=== PATIENT | male | born 1955 | race Hispanic/Latino ===

== ENCOUNTER 2022-08-26 15:02 | Emergency (ER) | payer OTHER ==
[~2022-08-26] VITALS: Ht 180.3 cm; Wt 82.1 kg
[2022-08-26 15:05] VITALS: BP 132/67
[2022-08-26 15:41] LABS: BASOPHILS % (AUTO) 0.5 % (0.0-5.0); EOSINOPHILS % (AUTO) 0.6 % (0.0-8.0); HEMATOCRIT 45.5 % (42-54); LYMPHOCYTES % (AUTO) 22.8 % (21.0-51.0); MEAN CORPUSCULAR HEMOGLOBIN 29.5 pg (27.0-33.0); MEAN CORPUSCULAR HGB CONC 34.5 g/dL (32.0-36.0); MEAN CORPUSCULAR VOLUME 85.4 fL (79-99); MONOCYTES % (AUTO) 6.5 % (3.0-13.0); NEUTROPHILS % (AUTO) 69.1 % (40.0-77.0); PLATELET COUNT (AUTO) 190 K/uL (130-400); RED BLOOD CELL COUNT(AUTO) 5.33 MIL/uL (4.50-6.20); RED CELL DISTRIBUTION WIDTH 13.4 % (11.0-15.5); WHITE BLOOD COUNT (AUTO) 8.5 K/uL (4.8-10.8)
[2022-08-26 15:57] LABS: INR 0.99 (0.85-1.15); PROTHROMBIN TIME 10.8 SEC (9.6-11.6)
[2022-08-26 16:00] LABS: CREATININE 0.7 mg/dL (0.5-1.5); POTASSIUM 3.4 mmol/L (3.5-5.1)
[2022-08-26 16:05] LABS: ALBUMIN 3.9 g/dL (3.5-5.0); TOTAL PROTEIN, SERUM 7.8 g/dL (6.0-8.3)
== END 2022-08-26 17:45 | disposition home or self-care (01) ==
LOC: EDH 15:02
DX: R60.0 Localized edema (principal)
CPT/HCPCS: 36415; 80053; 85025; 85610; 93971

== ENCOUNTER 2023-01-24 15:19 | Emergency (ER) | payer OTHER, MEDICARE ==
[~2023-01-24] VITALS: Ht 180.3 cm; Wt 83.9 kg
[2023-01-24 15:45] LABS: BASOPHILS % (AUTO) 0.1 % (0.0-5.0); HEMATOCRIT 40.5 % (42-54); LYMPHOCYTES % (AUTO) 2.8 % (21.0-51.0); MEAN CORPUSCULAR HEMOGLOBIN 29.4 pg (27.0-33.0); MEAN CORPUSCULAR HGB CONC 34.1 g/dL (32.0-36.0); MEAN CORPUSCULAR VOLUME 86.4 fL (79-99); MONOCYTES % (AUTO) 6.6 % (3.0-13.0); NEUTROPHILS % (AUTO) 89.9 % (40.0-77.0); PLATELET COUNT (AUTO) 150 K/uL (130-400); RED BLOOD CELL COUNT(AUTO) 4.69 MIL/uL (4.50-6.20); RED CELL DISTRIBUTION WIDTH 13.3 % (11.0-15.5); WHITE BLOOD COUNT (AUTO) 10.1 K/uL (4.8-10.8)
[2023-01-24 16:17] LABS: ALANINE AMINOTRANSFERASE 33 U/L (12-78); ALBUMIN 3.3 g/dL (3.5-5.0); ASPARTATE AMINOTRANSFERASE 14 U/L (10-37); CARBON DIOXIDE 24 mmol/L (21-32); CHLORIDE 106 mmol/L (101-111); GLOMERULAR FILTR. RATE CALC 82 mL/min (>90); GLUCOSE,RANDOM 140 mg/dL (70-105); SODIUM SERUM 137 mmol/L (136-145); TOTAL PROTEIN, SERUM 6.6 g/dL (6.0-8.3); UREA NITROGEN, BLOOD 18 mg/dL (7-18)
[2023-01-24 16:18] LABS: LIPASE < 50 U/L (114-286)
[2023-01-24 16:20] LABS: POTASSIUM 2.9 mmol/L (3.5-5.1)
[2023-01-24] MEDS ORDERED: ACETAMINOPHEN 500 MG TABLET PO ONE (16:30)
[2023-01-24 17:26] LABS: APPEARANCE,URINE CLEAR (CLEAR); BILIRUBIN,URINE NEGATIVE (NEGATIVE); COLOR,URINE YELLOW (YELLOW); GLUCOSE, URINE (UA) NEGATIVE (NEGATIVE); KETONES,URINE NEGATIVE (NEGATIVE); LEUKOCYTE ESTERASE ,URINE NEGATIVE Leu/uL (NEGATIVE); NITRATE,URINE NEGATIVE (NEGATIVE); OCCULT BLOOD,URINE NEGATIVE (NEGATIVE); PH,URINE 5.5 (5.0-8.0); PROTEIN,URINE 10 mg/dL (NEGATIVE); UROBILINOGEN,URINE 0.2 mg/dL (0.2-1.0)
[2023-01-24 17:29] LABS: WBC,URINE 0-1 /HPF (0-1)
[2023-01-24] MEDS ORDERED: POTASSIUM BICARB/CIT AC 25 MEQ TABLET.EFF PO ONE ×2 (17:30→18:00)
[2023-01-24] MEDS ORDERED: 0.9%NACL 1000ML 1,000 ML IV ONE (18:00)
[2023-01-24 20:24] VITALS: BP 105/60
== END 2023-01-24 20:33 | disposition home or self-care (01) ==
LOC: EDH 15:19
DX: K52.9 Noninfective gastroenteritis and colitis, unspecified (principal); E86.0 Dehydration; E87.6 Hypokalemia; F41.9 Anxiety disorder, unspecified; H40.9 Unspecified glaucoma; Z98.890 Other specified postprocedural states
CPT/HCPCS: 99285; 87635; 84484; 80053; 83690; 85025; 87040 ×2; 87804 ×2; 83605; 81001; 36415; 93005; C9803

== ENCOUNTER 2025-03-02 10:22 | Inpatient (IN) | payer OTHER, MEDICARE ==
[~2025-03-02] VITALS: Ht 180.3 cm; Wt 53.3 kg
[~2025-03-02 10:22] MED LIST: FINA5TAB41 PO; LEVO-70 PO; PANT40TA54 PO; TAMS-55 PO
--- NOTE | 2025-03-02 11:09 | EKG ---
[facility] Test Date: 2025-03-02 Test Time: 10:51:12 Pat Name: JACKIE ROBBINS Department: EDH Room: ED Gender: M Display Associate: [id number] : 1955 Requested By: TRAE JONAS Order Number: [id number] Reading MD: Dale Barlow Measurements Intervals [place] Rate: 69 P: 86 CT: 130 QRS: 79 QRSD: 78 T: 61 QT: 409 QTc: 437 Interpretive Statements Sinus rhythm Compared to ECG 09/07/2024 18:08:32 No significant changes Electronically Signed On 03-02-2025 21:33:25 CDT by Dale Barlow Please click the below link to view image of tracing.
[2025-03-02 11:13] LABS: BASOPHILS # (AUTO) 0.02 K/uL (0.00-0.20); BASOPHILS % (AUTO) 0.4 % (0.0-5.0); EOSINOPHILS # (AUTO) 0.01 K/uL (0.00-0.70); EOSINOPHILS % (AUTO) 0.2 % (0.0-8.0); HEMATOCRIT 42.6 % (42-54); IMMATURE GRANULOCYTE ABSOLUTE 0.01 K/uL (0-1); LYMPHOCYTES # (AUTO) 1.6 K/uL (1.0-4.8); LYMPHOCYTES % (AUTO) 33.5 % (21.0-51.0); MEAN CORPUSCULAR HEMOGLOBIN 30.9 pg (27.0-33.0); MEAN CORPUSCULAR HGB CONC 34.5 g/dL (32.0-36.0); MEAN CORPUSCULAR VOLUME 89.7 fL (79-99); MONOCYTES # (AUTO) 0.4 K/uL (0.1-1.0); MONOCYTES % (AUTO) 7.6 % (3.0-13.0); NEUTROPHILS # (AUTO) 2.7 K/uL (1.8-7.7); NEUTROPHILS % (AUTO) 58.1 % (40.0-77.0); PLATELET COUNT (AUTO) 142 K/uL (130-400); RED BLOOD CELL COUNT(AUTO) 4.75 MIL/uL (4.50-6.20); RED CELL DISTRIBUTION WIDTH 13.4 % (11.0-15.5); WHITE BLOOD COUNT (AUTO) 4.6 K/uL (4.8-10.8)
--- NOTE | 2025-03-02 11:14 | ERN ---
ED Note History of Present Illness Stated Complaint: DIFFICULTY SWALLOWING Chief Complaint: Other Problems Time Seen by MD: 10:29 Time Seen by Midlevel: 10:33 Dictation: 69-year-old male [facility] difficulty [facility] for two weeks in lost weight in the last couple of months. Denies any fever but states patient has a been able to have a bowel movement for two weeks. Allergies: Uncoded Allergies: LEVOFLOX (Allergy, Intermediate, ABDOMINAL CRAMPING, 03/02/25) Home Meds Active Scripts Levofloxacin (Levofloxacin) 500 Mg Tablet, 1 TAB PO DAILY for 7 Days, #7 TAB 0 Refills Prov:BRENDA ARAUJO DRIVING INSTRUCTOR 09/09/24 Reported Medications Finasteride (Finasteride) 5 Mg Tablet, 5 MG PO BID, TAB 09/08/24 Tamsulosin HCl (Flomax) 0.4 Mg Cap.er.24h, 1 CAP PO DAILY for 30 Days, #30 CAP 0 Refills 09/08/24 Pantoprazole Sodium (Pantoprazole Sodium) 40 Mg Tablet.dr, 1 TAB PO DAILY for 30 Days, #30 TAB 0 Refills 09/08/24 Past Medical History Past Medical History: Anxiety, Arthritis, Constipation, GERD, High Cholesterol Surgical History: Other Surgical History Other: TURP Social History: Negative, Lives with family Review of System Dictation Constitutional: Negative for fever,chills, positive for weight loss Eyes: Negative for injury, pain,redness, and discharge ENT: Negative for injury,pain or swelling, states difficulty swallowing Cardiovascular: Negative for chest pain, palpitations, and edema Respiratory: Negative for shortness of breath, cough, and wheezing, Abdomen/GI: Negative for abdominal pain, nausea, vomiting, diarrhea, and constipation Back: Negative for injury and pain : Negative for injury, bleeding and discharge MS/Extremity: Negative for injury and deformity Skin: Negative for rash, and discoloration Neuro: Negative for headache, weakness, numbness, tingling, and seizure Psych: Negative for suicide ideation, homicidal ideation, and hallucinations Review of Systems: was completed Initial Vital Sign VS Vital Signs Date Time Temp Pulse Resp B/P (MAP) Pulse Ox O2 Delivery O2 Flow Rate FiO2 03/02/25 10:25 72 16 123/89 99 Room Air 0 03/02/25 11:03 98.8 21 Physical Exam Dictation General: awake, alert, patient looks cachectic Head/Face: Normocephalic, atraumatic Eyes: PERRL, EOMI, vision at baseline ENT: oral cavity clear, TMs clear, no signs of infection Neck: Trachea midline, supple, no nuchal rigidity Cardiovascular: RRR, normal S1/S2, No MRGs, no JVD Respiratory: CTAB, no respiratory distress, No rales or wheezes Abdomen: Soft, non-tender, non-distended, normal bowel sounds, no guarding or rebound. Skin: Warm, dry, normal turgor, no rash MS/Extremity: Pulses equal, no cyanosis, neurovascular intact, FROM Neuro: COAx4, GCS 15, strength 5/5, CN 2-12 intact, normal cerebellar exam, normal gait, Psych: Normal behavior, mood, and affect normal Results (Laboratory/Radiology) Laboratory/Radiology Laboratory Tests Test 03/02/25 11:00 White Blood Count 4.6 K/uL (4.8-10.8) L Red Blood Count 4.75 MIL/uL (4.50-6.20) Hemoglobin 14.7 g/dL (14.0-18.0) Hematocrit 42.6 % (42-54) Mean Corpuscular Volume 89.7 fL (79-99) Mean Corpuscular Hemoglobin 30.9 pg (27.0-33.0) Mean Corpuscular Hemoglobin Concent 34.5 g/dL (32.0-36.0) Red Cell Distribution Width 13.4 % (11.0-15.5) Platelet Count 142 K/uL (130-400) Mean Platelet Volume 12.2 fL (7.5-10.5) H Immature Granulocyte % (Auto) 0.2 % (0-1) Neutrophils (%) (Auto) 58.1 % (40.0-77.0) Lymphocytes (%) (Auto) 33.5 % (21.0-51.0) Monocytes (%) (Auto) 7.6 % (3.0-13.0) Eosinophils (%) (Auto) 0.2 % (0.0-8.0) Basophils (%) (Auto) 0.4 % (0.0-5.0) Neutrophils # (Auto) 2.7 K/uL (1.8-7.7) Lymphocytes # (Auto) 1.6 K/uL (1.0-4.8) Monocytes # (Auto) 0.4 K/uL (0.1-1.0) Eosinophils # (Auto) 0.01 K/uL (0.00-0.70) Basophils # (Auto) 0.02 K/uL (0.00-0.20) Absolute Immature Granulocyte (auto 0.01 K/uL (0-1) Nucleated Red Blood Cells 0.0 % (0.0-0.19) Sodium Level 145 mmol/L (136-145) Potassium Level 3.8 mmol/L (3.5-5.1) Chloride Level 106 mmol/L (101-111) Carbon Dioxide Level 32 mmol/L (21-32) Blood Urea Nitrogen 26 mg/dL (7-18) H Creatinine 0.9 mg/dL (0.5-1.3) Glomerular Filtration Rate Calc 92 mL/min (>90) Random Glucose 99 mg/dL (70-105) Total Calcium 9.0 mg/dL (8.5-10.1) Total Bilirubin 1.0 mg/dL (0.2-1.0) Direct Bilirubin 0.3 mg/dL (0.0-0.3) Aspartate Amino Transf (AST/SGOT) 26 U/L (10-37) Alanine Aminotransferase (ALT/SGPT) 67 U/L (12-78) Alkaline Phosphatase 58 U/L (50-136) Troponin I High Sensitivity 11 ng/L (4-75) Total Protein 6.9 g/dL (6.0-8.3) Albumin 4.0 g/dL (3.5-5.0) Lipase 32 U/L (16-77) Labs Reviewed?: Yes EKG Comment: EKGs did not 1051. Sinus rhythm at a rate of 69. No STEMI interpreted by ER MD ED Course ED Course Orders Procedure Category Date Status Time Cbc With Differential LAB 03/02/25 Complete 10:40 Basic Metabolic Panel LAB 03/02/25 Complete 10:40 Troponin I High LAB 03/02/25 Complete Sensitivity 10:40 12 Lead Ekg Tracing- EKG 03/02/25 Complete Technical 10:40 Lipase LAB 03/02/25 Complete 10:40 Hepatic Function Panel LAB 03/02/25 Complete 10:40 Ct Abdomen/Pelvis CT 03/02/25 Resulted W/Contrast 10:40 Modified Barium RAD 03/02/25 Resulted Swallow W Cine 10:47 Dermabond (Dermabond) PHA 03/02/25 Complete 11:24 Iohexol (Omnipaque) PHA 03/02/25 Complete 12:13 Admit Orders ADM 03/02/25 Transmitted 16:16 Edm Admit Bridge Order ADM 03/02/25 Transmitted 16:17 Current Medications Medications (Trade) Dose Ordered Sig/Valeria Route PRN Reason Start Time Stop Time Status Last Admin Dose Admin Iohexol (Omnipaque) 75 ml STK-MED ONCE IV 03/02/25 12:13 03/02/25 12:14 DC Octyl Cyanoacrylate (Dermabond) 1 each STK-MED ONCE TP 03/02/25 11:24 03/02/25 11:24 DC Vital Signs Date Time Temp Pulse Resp B/P (MAP) Pulse Ox O2 Delivery O2 Flow Rate FiO2 03/02/25 13:01 98.8 60 14 155/72 99 Room Air* 0 21 03/02/25 11:03 98.8 67 16 117/79 100 Room Air* 0 21 03/02/25 10:25 72 16 123/89 99 Room Air 0 Medical Decision Making MDM MDM: 69-year-old male coming in for a the [place] for difficulty swallowing for two weeks in lost weight in the last couple of months. Denies any fever but states patient has a been able to have a bowel movement for two weeks. Blood work unremarkable. CT scan of the abdomen and pelvis shows just enlarged prostate. Swallow study shows no aspiration or penetration, recommend GI consult for further evaluation of upper GI series spoke to DRIVING INSTRUCTOR for hospitalist. Okay to admi t. Differential diagnosis: Failure to thrive, dehydration, electrolyte abnormality, LEI, Ca Rationale: Tests considered and ordered secondary to shared decision making include: labs, ECG and radiology Previous outside records reviewed: Old ER visits. Risk of complication and/or morbidity or mortality of patient management: None Medications-Per medication reconciliation Need for hospitalization: Patient does meet criteria for hospitalization. Need for emergency major/minor surgery: No There are no social concerns with this patient. Prescription drug management Prescriptions will include symptomatic care Patient's prior external medical records from other ER visits were reviewed by me as indicated. Prior testing and results from previous visits were reviewed. Prior tests were taken into account with medical decision making and resource utilization, independent historian/historians were used to obtain complete medical history. I independently interpreted the test that were performed, results were reviewed by me and considered findings on radiology if ordered. Medical management and examination interpretation discussions were had by me with other qualified healthcare professionals as indicated for the patient's care. DX & DISP Disposition: Inpatient Decision to Admit Date: March 02, 2025 Decision to Admit Time: 16:15 Departure Impression: Primary Impression: Dysphagia Condition: Stable Referrals: SHARYN MILLER MD (PCP) I have reviewed the case, and I agree with, Diagnosis and Plan I PERFORMED A SUBSTANTIVE PORTION OF THE VISIT. I HAVE REVIEWED AND PERSONALLY MADE AND APPROVE THE MANAGEMENT PLAN THAT IS DOCUMENTED IN THE NOTE BY MYSELF OR THE AP P. I ACKNOWLEDGE FULL RESPONSIBILITY FOR THE PATIENT'S MANAGEMENT PLAN. TRAE JONAS NP March 02, 2025 11:14
[2025-03-02 11:30] LABS: CREATININE 0.9 mg/dL (0.5-1.3); POTASSIUM 3.8 mmol/L (3.5-5.1)
[2025-03-02 11:34] LABS: BILIRUBIN,DIRECT 0.3 mg/dL (0.0-0.3); TOTAL PROTEIN, SERUM 6.9 g/dL (6.0-8.3)
[2025-03-02] MEDS ORDERED: IOHEXOL-350 75 ML VIAL IV ONE (12:13)
[2025-03-02] MEDS: OCTYL 2-CYANOACRYLATE 1 EACH TP ONE (12:30)
--- NOTE | 2025-03-02 13:43 | HMCIMG ---
Exam Type: CT ABDOMEN/PELVIS W/CONTRAST Clinical Information: n/v, constipation Comparison: None Contrast: 100 cc's Isovue 370 IV, no complications or adverse reactions CT Dose Index (CTDI): 31.60 mGy Dose Length Product (DLP): 1740.80 total mGy-cm Findings: Trace ascites. Anasarca. Cachexia. No evidence of nephro or ureterolithiasis is found. No hydronephrosis or ureteral dilatation is seen. The lung bases are clear. The stomach is unremarkable. It shows no wall thickening. No gross ulceration is seen. It is not overly distended. There are no surrounding inflammatory changes. No wall lesions are identified to suggest cancer. The spleen is unremarkable. It is not enlarged. The pancreas shows normal anatomy. It is not fatty replaced. It shows no lesions. The pancreatic duct is not dilated. The gallbladder is unremarkable. It shows no cholelithiasis. The gallbladder wall is normal in thickness. There is no pericholecystic fluid. The is no acute or chronic inflammation noted. The adrenal glands are unremarkable. There is no enlargement. No lesions are noted. The liver is unremarkable. It shows no focal masses. The appendix is unremarkable. It shows no evidence of inflammation. No appendicolith is seen. The small bowel is unremarkable. There is no evidence of dilatation to suggest obstruction. No evidence of adynamic ileus is seen. There is no small bowel wall thickening to suggest enteritis. The colon is unremarkable. Distended urinary bladder is seen. Enlarged prostate. The other pelvic structures are unremarkable. The bony and vascular structures are unremarkable for the patient's age. IMPRESSION: Trace ascites. Anasarca. Cachexia. Distended urinary bladder. Enlarged prostate. This study was performed using dose reduction techniques to include automated exposure control and/or adjustment of the mA and/or kV according to patient size.
--- NOTE | 2025-03-02 15:00 | NUR ---
MBSS COMPLETED. No aspirations/no penetrations. Recommend pureed solids, thin liquids, and meds crushed with pureed solids once cleared by GI MD. Compensatory strategies: 1.sit upright during oral intake 2. small bites/sips 3. slow oral intake DIAGNOSTIC FINDINGS: Pt very anxious during exam mildly affecting swallowing in oral phase due to decreased swallow initiation. Pt started with trials of pureed solids (taking just the tip of the spoon X2) with no aspirations or penetrations. Pt felt comfortable and started taking full spoon trials of pudding thick textures with no penetrations or aspirations. Pt continue with moderately thick, mildly thick liquids via tsp and thin liquids via cup sip with no penetrations or aspirations. Pt presented with mild residue above UES due to mild reflux observed. Pt reported discomfort in upper esophageal area (pointing to chest); however not within my scope. Recommend upper GI series to further evaluate esophageal function. Recommend pureed solids and thin liquids at this time. Pt may advanced to regular solids as tolerated if discomfort in esophagus has been addressed and/or resolved. MAINTENANCE SHOP CLERK reviewed results and recommendations with patient, , and nurse Fiona. MAINTENANCE SHOP CLERK educated patient/family on risks and consequences of aspiration. Speech therapy not warranted at this time. All questions answered. Addendum: 03/02/[address] [facility] Amended: Links added.
--- NOTE | 2025-03-02 16:17 | HMCIMG ---
MODIFIED BARIUM SWALLOW W CINE INDICATION: difficulty swallowing FINDINGS: Fluoroscopic assistance was provided to the speech pathologist while performing examination. For findings and dietary recommendations, refer to speech pathologist's report. IMPRESSION: Modified barium swallow as described.
[2025-03-02] MEDS ORDERED: ondanSETRON 4MG INJ IV PRN (17:00)
[2025-03-02] MEDS ORDERED: PoTASSium chloRIDE 20MEQ ER 20 MEQ ERTAB PO PRN (17:00)
[2025-03-02] MEDS ORDERED: PoTASSium chloRIDE 10MEQ/100ML 100 ML IV PRN (17:00)
[2025-03-02] MEDS ORDERED: DEXTROSE 50%-WATER 50 ML DISP.SYRIN IV PRN (17:00)
[2025-03-02] MEDS ORDERED: ZOLPidem TARTrate 5 MG TAB PO PRN (17:00)
[2025-03-02] MEDS ORDERED: FAMOTIDINE 20MG VIAL IV PRN (17:00)
[2025-03-02] MEDS ORDERED: LACTULOSE 20 GM/30 ML UDCUP PO PRN (17:00)
[2025-03-02] MEDS ORDERED: acetaMINOPHEN 325 MG TAB PO PRN ×3 (17:00)
[2025-03-02] MEDS ORDERED: DiphenhydrAMINE HCL 50 MG/ML VIAL IV PRN (17:00)
[2025-03-02] MEDS ORDERED: GLUCAGON 1MG KIT 1 MG ML IM PRN (17:00)
[2025-03-02] MEDS ORDERED: NITROGLYCERIN 0.4 MG SL TAB SL PRN (17:00)
[2025-03-02] MEDS ORDERED: MAG/ALUM/SIMETH 30 ML UDCUP PO PRN (17:00)
[2025-03-02] MEDS ORDERED: ketOROlac 15MG/ML VIAL (15MG/ML) IV PRN (17:00)
[2025-03-02] MEDS ORDERED: guaiFENesin-DM 200/20MG 10ML PO PRN (17:00)
[2025-03-02] MEDS ORDERED: morPHINE 2 MG SYG IVP PRN (17:00)
[2025-03-02] MEDS ORDERED: MAGNESIUM 2GM PREMIX 50ML 50 ML IV PRN (17:00)
[2025-03-02] MEDS ORDERED: PoTASSium chl 10% ELIXIR 20MEQ 20 MEQ/15 ML UDCUP PO PRN (17:00)
[2025-03-02] MEDS ORDERED: hydrALAZine 20MG/ML VIAL IV PRN (17:00)
--- NOTE | 2025-03-02 17:05 | HP ---
[facility] PHYS[facility] Date of Service: March 02, 2025 Time of Service: 16:49 Admitting:Dr Johnson, Allergies: Levofloxacin HISTORY OF PRESENT ILLNESS: [ Patient is 69 years old male with a past medical history of hypertension, anxiety, arthritis, constipation, GERD, hyperlipidemia, TURP, who [facility] with a complains of difficulty swallowing for the past two weeks in the lost of weight of about 70 lb since August 2024. Patient denies any shortness of breath, chest pain, nausea, fevers, vomiting or any other discomfort other than stated above. Patient was seen in our by speech therapy and as per their recommendation was no aspiration/no penetration. They recommended EGD by GI to be performed. Also CT abdomen/pelvis was performed and showed trace ascites. Anasarca, cachexia, enlarged prostate, distended urinary bladder. Most recent vital signs temperature 98.8 pulse 60 respiration 14 blood pressure 155/72. Patient is on room air satting 99%. WBC 4.6 hemoglobin 14.7 hematocrit 42.6 platelets 142. Sodium 145 potassium 3.8 CO2 32 BUN 26 creatinine 0.9 GFR 92 troponin negative x1 albumin 4.[address] abdomen/pelvis showed trace ascites. Anasarca. Cachexia, enlarged prostate, distended urinary bladder. Patient was also evaluated by the speech therapist and at this moment there is no aspiration seen and no penetration. They recommended EGD to be performed by GI. Patient will be admitted under hospitalist care for further evaluation/recommendations. Patient agrees with the further plan. ] REVIEW OF SYSTEMS CONSTITUTIONAL: Denies fevers, chills, or night sweats. No unintentional weight loss reported. NEUROLOGICAL: Denies headache, amaurosis fugax, motor weakness, sensory deficit, vertigo/spinning sensation, gait abnormalities, or tremors. Patient complains of difficulty swallowing ENT: No hearing loss, otalgia, otorrhea, rhinitis, rhinorrhea, hoarseness, or sore throat. CARDIOVASCULAR: Denies any exertional angina, dyspnea on exertion, orthopnea, paroxysmal nocturnal dyspnea, palpitations, life-threatening arrhythmias, claudication. PULMONARY: Denies any shortness of breath, cough, phlegm/sputum, hemoptysis, pleuritic chest pain. SLEEP: Denies morning headaches, daytime somnolence or napping. Denies difficulty falling asleep, staying asleep, waking from sleep. Denies knowledge of snoring. GASTROINTESTINAL: Denies any type of dysphagia to either liquids or solids. Denies nausea, vomiting, pyrosis, early satiety, abdominal pain, diarrhea, constipation, or changes in stool consistency or caliber. Denies coffee-ground emesis, hematemesis, hematochezia, or melanotic stools. GENITOURINARY: Denies frequency, urgency, nocturia, hematuria or incontinence (Storage/Irritative symptoms.) Low urinary stream, straining to void, urinary intermittency or hesitancy, splitting of the voiding stream, terminal dribbling. ENDOCRINOLOGIC: Denies polyuria, polydipsia, polyphagia or heat/cold intolerances. HEMATOLOGIC: Denies thrombophilia/previous clots, or coagulopathy/bleeding disorders. ONCOLOGIC: Denies personal history of malignancy. DERMATOLOGIC: Denies rashes or pruritus. PSYCHIATRIC: Denies any suicidal or homicidal ideation. Denies hallucinations. PAST MEDICAL HISTORY: [ Hypertension, anxiety, arthritis, constipation, GERD, hyperlipidemia] PAST SURGICAL HISTORY: [ TURP ] PAST SOCIAL HISTORY: [Patient denies any drug illicit patient denies any alcohol use. Patient denies any smoking] FAMILY HISTORY: [ Patient was at home with the family] Uncoded Allergies: LEVOFLOX (Allergy, Intermediate, ABDOMINAL CRAMPING, 03/02/25) PHYSICAL EXAM GENERAL APPEARANCE: The patient is awake, alert, and oriented, in no acute cardiopulmonary distress. NEUROLOGICAL: Cranial nerves II-XII grossly intact. Motor is 5/5 in bilateral upper and lower extremities proximal to distal. No sensory deficits. HEENT: Face is symmetric. Pupils are equal and reactive. Extraocular movements are intact. NECK: Supple. No JVD. No thyromegaly. No submental, submandibular, pre- /postauricular, occipital or supraclavicular lymphadenopathy. CHEST: Normal chest expansion. No Telemetry. LUNGS: Absence of any rales, rhonchi or any wheezing. CARDIOVASCULAR: Regular. S1 and S2 normal. No appreciable rubs, murmurs or gallops. ABDOMEN: Soft, nontender, and nondistended. There is no rebound, voluntary gu arding, or rigidity. : Deferred. No Huffman. EXTREMITIES: Non-edematous and not cyanotic. No clubbing. Good capillary refill. SKIN: No skin breakdown. Vital Sign (Last 24 Hours) 03/02/25 13:01 Temp 98.8 Pulse 60 Resp 14 B/P (MAP) 155/72 Pulse Ox 99 O2 Delivery Room Air* O2 Flow Rate 0 FiO2 21 LABS: Laboratory: Test 03/02/25 11:00 Range/Units White Blood Count 4.6 L 4.8-10.8 K/uL Red Blood Count 4.75 4.50-6.20 MIL/uL Hemoglobin 14.7 14.0-18.0 g/dL Hematocrit 42.6 42-54 % Mean Corpuscular Volume 89.7 79-99 fL Mean Corpuscular Hemoglobin 30.9 27.0-33.0 pg Mean Corpuscular Hemoglobin Concent 34.5 32.0-36.0 g/dL Red Cell Distribution Width 13.4 11.0-15.5 % Platelet Count 142 130-400 K/uL Mean Platelet Volume 12.2 H 7.5-10.5 fL Immature Granulocyte % (Auto) 0.2 0-1 % Neutrophils (%) (Auto) 58.1 40.0-77.0 % Lymphocytes (%) (Auto) 33.5 21.0-51.0 % Monocytes (%) (Auto) 7.6 3.0-13.0 % Eosinophils (%) (Auto) 0.2 0.0-8.0 % Basophils (%) (Auto) 0.4 0.0-5.0 % Neutrophils # (Auto) 2.7 1.8-7.7 K/uL Lymphocytes # (Auto) 1.6 1.0-4.8 K/uL Monocytes # (Auto) 0.4 0.1-1.0 K/uL Eosinophils # (Auto) 0.01 0.00-0.70 K/uL Basophils # (Auto) 0.02 0.00-0.20 K/uL Absolute Immature Granulocyte (auto 0.01 0-1 K/uL Nucleated Red Blood Cells 0.0 0.0-0.19 % Sodium Level 145 136-145 mmol/L Potassium Level 3.8 3.5-5.1 mmol/L Chloride Level 106 101-111 mmol/L Carbon Dioxide Level 32 21-32 mmol/L Blood Urea Nitrogen 26 H 7-18 mg/dL Creatinine 0.9 0.5-1.3 mg/dL Glomerular Filtration Rate Calc 92 >90 mL/min Random Glucose 99 70-105 mg/dL Total Calcium 9.0 8.5-10.1 mg/dL Total Bilirubin 1.0 0.2-1.0 mg/dL Direct Bilirubin 0.3 0.0-0.3 mg/dL Aspartate Amino Transf (AST/SGOT) 26 10-37 U/L Alanine Aminotransferase (ALT/SGPT) 67 12-78 U/L Alkaline Phosphatase 58 50-136 U/L Troponin I High Sensitivity 11 4-75 ng/L Total Protein 6.9 6.0-8.3 g/dL Albumin 4.0 3.5-5.0 g/dL Lipase 32 16-77 U/L DIAGNOSTICS / RADIOLOGY: [ ] ASSESSMENT: [ Acute difficulty swollen POA Uncontrolled hypertension POA Acute dehydration POA Trace of Ascites per CT abdomen/pelvis POA Anasarca per CT abdomen/pelvis POA Enlarged prostate per CT abdomen/pelvis POA Anxiety POA Arthritis constipation POA GERD POA Hyperlipidemia POA ] PLAN: [Admit to: Medical-surgical Consults: GI Antibiotics: None Tests: None at this moment Normal saline at 100 mL/hour NEURO: Minimize central acting medications as possible. Fall Precautions. Well lighted room through the day and minimize interruptions through the night to prevent acute delirium. PULMONARY: Supplemental 02 as needed BiPAP as necessary, for respiratory distress Titrate Fio2 to keep Spo2 > or = 90% DuoNebs and CPT as needed IS hourly while awake for pulmonary hygiene Out of bed to chair as tolerated VAP Bundle Maintain aspiration precautions at all times CARDIOVASCULAR: Follow hemodynamics. Vital signs per facility protocol GI & NUTRITION: CT abdomen/pelvis showed trace ascites POA is anasarca. Cachexia, enlarged prostate, distended urinary bladder Continue nutritional support Aspirations precautions Prokinetic agents and laxatives as needed KIDNEYS & ELECTROLYTES: Strict monitoring of intake and output Daily weights Avoid nephrotoxic agents Monitor electrolytes and replace as needed Goal urine output of 30mL/hr or 0.5mL/kg/hr Medications to be dosed according to renal function. Avoid contrast if possible ENDOCRINE: Maintain blood glucose between 100-180 at all times. Insulin sliding scale for blood glucose management Hypoglycemia and hyperglycemia protocol in place INFECTIOUS DISEASE: Trend temperature, WBC and procalcitonin level Follow cultures, deescalate antibiotics as soon as possible. Panculture if new onset fever HEMATOLOGY & COAGULATION: Monitor H&H. Keep Hgb > 7 Transfuse 1 unit of PRBC for Hgb < 7 Transfuse 1 pack of platelets of platelets < 20, 000 Watch for any signs and symptoms of bleeding SKIN: Pressure ulcer prevention per facility protocol Specialty mattress as needed Treatment plan discussed with patient and family at the bedside Medications to be reconciled once obtained by patient and/or family and avai lable to be reconciled in computer p.r.n. medication for pain nausea and vomiting Questions were answered We will continue to monitor the patient closely Nurse Case Management for disposition Rehab: PT/OT GI: PPI DVT: SCD's Code Status: Full Resuscitation Disposition: TBD Prognosis: Guarded ] ADVANCED CARE PLANNING 1. Which of the following were discussed? Hospice Care - Yes / No Therapeutic options - Yes / No Advance Directives - Yes / No Other discussions - 2. Discussed with who? Patient and mother at bedside 3. Voluntary nature of this service was explained to the patient? Yes / No 4. Amount of time spent - ____ more than 35 minutes ___ 5. Reviewed by Physician? (if this service was performed by NPP) Yes / No ATTESTATION BY PHYSICIAN I have seen and examined the patient. I reviewed the documentation, medical decision making, and treatment plan as noted by the mid-level provider above. I agree with the findings and plan of care. MARIELLA JOHNSON MD, KATARZYNA B STONE TRIMMER March 02, 2025 17:05
--- NOTE | 2025-03-02 17:48 | NUR ---
PENDING TO BRING MEDICATIONS FROM HOME.
[2025-03-02] MEDS: 0.9%NACL 1000ML 1,000 ML IV SCH (17:57)
[2025-03-02] MEDS ORDERED: SERT-440 PO (18:53)
[2025-03-02] MEDS ORDERED: BUSP10TA3 PO (18:53)
[2025-03-02] MEDS ORDERED: TRAZ150T79 PO (18:53)
[2025-03-02 19:19] LABS: APPEARANCE,URINE CLEAR (CLEAR); BILIRUBIN,URINE NEGATIVE (NEGATIVE); COLOR,URINE YELLOW (YELLOW); GLUCOSE, URINE (UA) NEGATIVE (NEGATIVE); KETONES,URINE 10 mg/dL (NEGATIVE); LEUKOCYTE ESTERASE ,URINE NEGATIVE Leu/uL (NEGATIVE); MUCUS,URINE FEW LPF (None Seen); NITRATE,URINE NEGATIVE (NEGATIVE); OCCULT BLOOD,URINE NEGATIVE (NEGATIVE); PROTEIN,URINE 20 mg/dL (NEGATIVE); SQUAMOUS EPITHELIAL CELL,UR RARE /HPF (0-2); UROBILINOGEN,URINE 0.2 mg/dL (0.2-1.0)
--- NOTE | 2025-03-02 19:40 | NUR ---
DR. RICHTER AT BEDSIDE AT THIS TIME
[2025-03-02] MEDS ORDERED: NON-FORMULARY MEDICATION 1 EACH (Trazodone HCl 300 MG) PO PRN (20:00)
[2025-03-02] MEDS: HEParin 5,000 UNIT VIAL SQ SCH (20:48)
[2025-03-02] MEDS: INSULIN humuLIN R 100 UNIT/ML 3ML SQ SCH (20:49)
[2025-03-02 23:03] LABS: INFLUENZA TYPE A Negative For Type A (NEGATIVE); INFLUENZA TYPE B Negative For Type B (NEGATIVE)
[2025-03-03] VITALS (22 sets, daily range): BP systolic 103–146; BP diastolic 64–89; PULSE 50–105; RESP 15–19; TEMP 97.4–97.8; O2SAT 95–99
--- NOTE | 2025-03-03 00:14 | NUR ---
REPORT GIVEN TO NURSE BRIDGETT
[2025-03-03] MEDS ORDERED: LATA2.5D14 OU (01:00)
[2025-03-03 06:35] LABS: BASOPHILS # (AUTO) 0.02 K/uL (0.00-0.20); BASOPHILS % (AUTO) 0.4 % (0.0-5.0); IMMATURE GRANULOCYTE ABSOLUTE 0.01 K/uL (0-1); LYMPHOCYTES # (AUTO) 1.2 K/uL (1.0-4.8); LYMPHOCYTES % (AUTO) 25.3 % (21.0-51.0); MEAN CORPUSCULAR HEMOGLOBIN 30.6 pg (27.0-33.0); MEAN CORPUSCULAR HGB CONC 34.1 g/dL (32.0-36.0); MEAN CORPUSCULAR VOLUME 89.5 fL (79-99); MONOCYTES # (AUTO) 0.4 K/uL (0.1-1.0); MONOCYTES % (AUTO) 8.4 % (3.0-13.0); NEUTROPHILS # (AUTO) 3.1 K/uL (1.8-7.7); NEUTROPHILS % (AUTO) 65.7 % (40.0-77.0); PLATELET COUNT (AUTO) 133 K/uL (130-400); RED BLOOD CELL COUNT(AUTO) 4.58 MIL/uL (4.50-6.20); RED CELL DISTRIBUTION WIDTH 13.3 % (11.0-15.5); WHITE BLOOD COUNT (AUTO) 4.7 K/uL (4.8-10.8)
[2025-03-03 07:02] LABS: ALBUMIN 3.9 g/dL (3.5-5.0); BILIRUBIN,DIRECT 0.4 mg/dL (0.0-0.3); BILIRUBIN,TOTAL 1.2 mg/dL (0.2-1.0); CREATININE 0.8 mg/dL (0.5-1.3); MAGNESIUM 2.3 mg/dL (1.80-2.40); POTASSIUM 4.2 mmol/L (3.5-5.1); TOTAL PROTEIN, SERUM 6.5 g/dL (6.0-8.3)
[2025-03-03] MEDS: FAMOTIDINE 20MG VIAL IV SCH (08:45)
[2025-03-03] MEDS ORDERED: PoTASSium chloRIDE 10MEQ SR 10 MEQ/TAB TAB.SR.24H PO PRN (09:30)
--- NOTE | 2025-03-03 10:09 | NUR ---
DCP: HOME Pt currently lives with allan Palencia [phone] in their home. Pt does not have DME, home health, or provider services. Pt did not report any insecurities with food, fdc, and/or utilities. Pt is able to complete ADLs independently. PCP is Dr. Ron Martinez and uses the [facility] for any RX needs. At [place] pt wants to go home and family will assist with transportation. Addendum: 03/03/25 at 1012 by ANDREA DAVID SS Amended: Links added.
--- NOTE | 2025-03-03 11:24 | CONS ---
GASTROINTESTINAL CONSULTATION REFERRING PHYSICIAN: Diego Roberts MD REASON FOR CONSULTATION: Epigastric pain, dysphagia, weight loss, constipation, and abnormal abdominal imaging with ascites. HISTORY OF PRESENT ILLNESS: The patient is a 69-year-old male with history of obstructive sleep apnea, peptic ulcer, benign prostatic hyperplasia, hepatic cyst, colon polyps, glaucoma, posttraumatic stress disorder, COVID, who also has history of fatty liver and who was admitted with dysphagia, epigastric pain, and who also reports weight loss, for which GI evaluation and management are sought. According to the patient and at bedside, the patient has been having sharp epigastric pain on and off over the last one month. The pain is nonradiating, lasting 10 or more minutes and has been unchanged with p.o. food intake and bowel movements. The patient reports he has been experiencing dysphagia to solids and liquids over the last two weeks. This is new for him. He has lost 70 pounds unintentional over the last 7 to 8 months. The patient reports also new-onset constipation in the last one week. The patient denies any history of pill esophagitis or caustic congestion. He denies any fever or chills. The patient also denies any abdominal trauma. He has experienced no melena, hematochezia, or diarrhea. He admits to family history of colon cancer in a brother at age 53. There is no family history of stomach cancer, esophageal disorder, liver disease, gallbladder disease, or pancreatic disease, but a maternal uncle had prostate cancer. ALLERGIES: LEVOFLOXACIN. PAST MEDICAL AND SURGICAL HISTORY: history of hypertension, hyperlipidemia, constipation, obstructive sleep apnea, benign prostatic hyperplasia, gastrointestinal metaplasia, PUD, hepatic cyst, colon polyps, glaucoma, PTSD, and hearing loss, but no CAD, NH, CVA, seizure disorder, or asthma. MEDICATIONS: Famotidine, subcutaneous heparin, insulin, hydralazine, ketorolac, acetaminophen, nitroglycerin, lactulose, milk of magnesia, and zolpidem tartrate. SOCIAL HISTORY: No alcohol use, tobacco use, or illicit drug use. FAMILY HISTORY: Significant for colon cancer in a brother who from this illness at age 53. There is a family history of prostate cancer in a maternal uncle, but no family history of stomach cancer; esophageal, liver, gallbladder, or pancreatic disorders. Admits to family history of possible hypertension but no CAD or NH. REVIEW OF SYSTEMS: CONSTITUTIONAL: The patient reports significant dysphagia and weight loss as above, but no fever or chills. DERMATOLOGY: He denies any rash or excessive dry skin. He denies easy bruising. OPHTHALMOLOGY: No recent vision change, eye pain, periorbital swelling, redness, or drainage. ENT: No ear pain or tinnitus. He has significant hearing loss. No nasal congestion, rhinorrhea, sore throat, or voice change, but he had dysphagia. RESPIRATORY: No wheeze, rhinorrhea, epistaxis, chest congestion, or cough. CARDIOVASCULAR: No chest pain, palpitations, or leg swelling. GENITOURINARY: He makes scant urine. He denies dysuria or hematuria. GASTROINTESTINAL: He has been having epigastric pain which has improved since hospitalization, dysphagia persists though, and he has lost significant weight in the last 7 to 8 months totaling about 70 pounds. The patient denies melena, hematochezia, or diarrhea, but reports some constipation in the last one week. MUSCULOSKELETAL: No joint pain, joint swelling, or backache. NEUROLOGY: He has numbness of the lower extremities and hearing loss but no vision changes. PSYCHIATRY: He has a history of PTSD. ENDOCRINOLOGY: No documented history of thyroid disease, hyperlipidemia, or diabetes mellitus. HEMATOLOGY AND LYMPHATICS: The patient denies any inherited bleeding disorders; easy bruising; swollen, tender, or palpable lymph node. PHYSICAL EXAMINATION: GENERAL: The patient is a 69-year-old male who appears stated age, seen resting but in no acute respiratory distress. VITAL SIGNS: Blood pressure 144/68, heart rate 62, respirations 16, temperature 97.9 degrees Fahrenheit. SKIN: Warm and dry. No active dermatosis. HEENT: The patient's head is normocephalic, atraumatic. Pupils are reactive. Sclerae nonicteric. Oral mucosa moist. No obvious lesion. No blood noted. Nasal mucosa showed no epistaxis, septal deviation, or perforation, NECK: Supple. No mass, no jugular venous distention, no lymphadenopathy, no thyromegaly. LUNGS: Clear to auscultation bilaterally. HEART: S1 and S2. No obvious murmurs, rubs, gallops auscultated. ABDOMEN: Scaphoid. Soft with active bowel sounds. No hepatomegaly, no masses. Mild tenderness in the epigastric. No rebound. No guarding. EXTREMITIES: No cyanosis, clubbing, or edema. RECTAL AND GENITAL: Deferred. LABORATORY DATA: WBC 4.6, hemoglobin 14.7, hematocrit 42.6, MCV of 89.7, platelet count of 142. Serum chemistry revealed sodium 145, potassium 3.8, chloride of 106, CO2 of 32, BUN of 26, creatinine 0.9, GFR of 92, random glucose 99, total calcium of 9. Total bilirubin of 1, direct bilirubin 0.3, AST 26, ALT 67, alkaline phosphatase of 58. Troponin I high sensitivity of 11. Total protein 6.9, albumin of 4, lipase of 32. Influenza type A and influenza type B antigens were negative. DIAGNOSTIC DATA: CT scan of abdomen and pelvis done earlier today. It showed trace ascites, anasarca, cachexia, distended urinary bladder and enlarged prostate. IMPRESSION: * Epigastric pain, possibly from gastritis or acid-related reflux and malfunctioning gallbladder cannot be excluded. Since the patient has weight loss, pancreatic malignancy must be entertained at this point. Small bowel pathology such as neoplasia cannot be excluded too. * Dysphagia in the setting of epigastric pain makes food bolus a possibility, though less likely. * Esophageal stricture ring cannot be excluded. * Significant weight loss as above suggestive of possible malignancy. Therefore, thyroid disease cannot be excluded too. * Hypertension. * Arthritis. * Constipation, most likely from sedentary lifestyle and lack of water intake, also lack of fiber too though, but cannot exclude colon polyp or colon mass lesion. * Family history of colon cancer in . * Hearing loss. PLAN: * Recommend EGD for further evaluation and management including possible esophageal dilation. * Strict adherence to anti-reflux measures. * Continue with Protonix therapy. * The patient may benefit from push enteroscopy also if the above workup is negative. * Consider HIDA scan with ejection fraction. Dr. Roberts, thank you for allowing me to participate in the care of this patient. TID: [id number] RECEIPT: [id number] cc: Diego Roberts MD
--- NOTE | 2025-03-03 11:24 | PN ---
[facility] PROGRESS NOTE Date of Service: March 03, 2025 Time of Service: 11:[address] Johnson SUBJECTIVE: [ 03/02 Patient is 69 years old male with a past medical history of hypertension, anxiety, arthritis, constipation, GERD, hyperlipidemia, TURP, who came to emergency department from the [facility] with a complains of difficulty swallowing for the past two weeks in the lost of weight of about 70 lb since August 2024. Patient denies any shortness of breath, chest pain, nausea, fevers, vomiting or any other discomfort other than stated above. Patient was seen in our by speech therapy and as per their recommendation was no aspiration /no penetration. They recommended EGD by GI to be performed. Also CT abdomen/pelvis was performed and showed trace ascites. Anasarca, cachexia, enlarged prostate, distended urinary bladder. Most recent vital signs temperature 98.8 pulse 60 respiration 14 blood pressure 155/72. Patient is on room air satting 99%. WBC 4.6 hemoglobin 14.7 hematocrit 42.6 platelets 142. Sodium 145 potassium 3.8 CO2 32 BUN 26 creatinine 0.9 GFR 92 troponin negative x1 albumin 4.[address] abdomen/pelvis showed trace ascites. Anasarca. Cachexia, enlarged prostate, distended urinary bladder. Patient was also evaluated by the speech therapist and at this moment there is no aspiration seen and no penetration. They recommended EGD to be performed by GI. Patient will be admitted under hospitalist care for further evaluation/recommendations. Patient agrees with the further plan. 03/03 patient was seen by nurse practitioner and physician during rounding in room 316. Patient was evaluated by the GI and at this moment is waiting to undergo EGD. We will consult dietary consultation for loss in weight for about 70 lb since August 2024. Influenza a and influenza abuse negative. We will continue to monitor patient in the meantime. A.m. labs] REVIEW OF SYSTEMS CONSTITUTIONAL: Denies fevers, chills, or night sweats. No unintentional weight loss reported. NEUROLOGICAL: Denies headache, amaurosis fugax, motor weakness, sensory deficit, vertigo/spinning sensation, gait abnormalities, or tremors. Patient complains of difficulty swallowing ENT: No hearing loss, otalgia, otorrhea, rhinitis, rhinorrhea, hoarseness, or sore throat. CARDIOVASCULAR: Denies any exertional angina, dyspnea on exertion, orthopnea, paroxysmal nocturnal dyspnea, palpitations, life-threatening arrhythmias, claudication. PULMONARY: Denies any shortness of breath, cough, phlegm/sputum, hemoptysis, pleuritic chest pain. SLEEP: Denies morning headaches, daytime somnolence or napping. Denies difficulty falling asleep, staying asleep, waking from sleep. Denies knowledge of snoring. GASTROINTESTINAL: Denies any type of dysphagia to either liquids or solids. Denies nausea, vomiting, pyrosis, early satiety, abdominal pain, diarrhea, constipation, or changes in stool consistency or caliber. Denies coffee-ground emesis, hematemesis, hematochezia, or melanotic stools. GENITOURINARY: Denies frequency, urgency, nocturia, hematuria or incontinence (Storage/Irritative symptoms.) Low urinary stream, straining to void, urinary intermittency or hesitancy, splitting of the voiding stream, terminal dribbling. ENDOCRINOLOGIC: Denies polyuria, polydipsia, polyphagia or heat/cold intoleran latrice. HEMATOLOGIC: Denies thrombophilia/previous clots, or coagulopathy/bleeding disorders. ONCOLOGIC: Denies personal history of malignancy. DERMATOLOGIC: Denies rashes or pruritus. PSYCHIATRIC: Denies any suicidal or homicidal ideation. Denies hallucinations. PHYSICAL EXAM GENERAL APPEARANCE: The patient is awake, alert, and oriented, in no acute cardiopulmonary distress. NEUROLOGICAL: Cranial nerves II-XII grossly intact. Motor is 5/5 in bilateral upper and lower extremities proximal to distal. No sensory deficits. HEENT: Face is symmetric. Pupils are equal and reactive. Extraocular movements are intact. NECK: Supple. No JVD. No thyromegaly. No submental, submandibular, pre- /postauricular, occipital or supraclavicular lymphadenopathy. CHEST: Normal chest expansion. No Telemetry. LUNGS: Absence of any rales, rhonchi or any wheezing. CARDIOVASCULAR: Regular. S1 and S2 normal. No appreciable rubs, murmurs or gallops. ABDOMEN: Soft, nontender, and nondistended. There is no rebound, voluntary guarding, or rigidity. : Deferred. No Huffman. EXTREMITIES: Non-edematous and not cyanotic. No clubbing. Good capillary refill. SKIN: No skin breakdown. Vital Signs (last 8hr) Date Time Temp Pulse Resp B/P (MAP) Pulse Ox O2 Delivery O2 Flow Rate FiO2 03/03/25 08:01 97.3 56 18 128/75 100 Room Air 03/03/25 05:30 97.9 50 18 144/74 100 Room Air LABS: Laboratory: Test 03/03/25 06:27 03/02/25 22:40 03/02/25 20:45 03/02/25 19:00 Range/Units White Blood Count 4.7 L 4.8-10.8 K/uL Red Blood Count 4.58 4.50-6.20 MIL/uL Hemoglobin 14.0 14.0-18.0 g/dL Hematocrit 41.0 L 42-54 % Mean Corpuscular Volume 89.5 79-99 fL Mean Corpuscular Hemoglobin 30.6 27.0-33.0 pg Mean Corpuscular Hemoglobin Concent 34.1 32.0-36.0 g/dL Red Cell Distribution Width 13.3 11.0-15.5 % Platelet Count 133 130-400 K/uL Mean Platelet Volume 12.4 H 7.5-10.5 fL Immature Granulocyte % (Auto) 0.2 0-1 % Neutrophils (%) (Auto) 65.7 40.0-77.0 % Lymphocytes (%) (Auto) 25.3 21.0-51.0 % Monocytes (%) (Auto) 8.4 3.0-13.0 % Eosinophils (%) (Auto) 0.0 0.0-8.0 % Basophils (%) (Auto) 0.4 0.0-5.0 % Neutrophils # (Auto) 3.1 1.8-7.7 K/uL Lymphocytes # (Auto) 1.2 1.0-4.8 K/uL Monocytes # (Auto) 0.4 0.1-1.0 K/uL Eosinophils # (Auto) 0.00 0.00-0.70 K/uL Basophils # (Auto) 0.02 0.00-0.20 K/uL Absolute Immature Granulocyte (auto 0.01 0-1 K/uL Nucleated Red Blood Cells 0.0 0.0-0.19 % Sodium Level 144 136-145 mmol/L Potassium Level 4.2 3.5-5.1 mmol/L Chloride Level 105 101-111 mmol/L Carbon Dioxide Level 30 21-32 mmol/L Blood Urea Nitrogen 24 H 7-18 mg/dL Creatinine 0.8 0.5-1.3 mg/dL Glomerular Filtration Rate Calc 96 >90 mL/min Random Glucose 96 70-105 mg/dL Hemoglobin A1c 6.0 4.0-6.0 % Estimated Average Glucose (eAG) 126 70-126 mg/dL Lactic Acid Level 1.2 0.8-2.5 mmol/L Total Calcium 9.1 8.5-10.1 mg/dL Magnesium Level 2.30 1.80-2.40 mg/dL Total Bilirubin 1.2 H 0.2-1.0 mg/dL Direct Bilirubin 0.4 #H 0.0-0.3 mg/dL Aspartate Amino Transf (AST/SGOT) 21 10-37 U/L Alanine Aminotransferase (ALT/SGPT) 57 12-78 U/L Alkaline Phosphatase 55 50-136 U/L Total Creatine Kinase 76 # 21-232 U/L B-Type Natriuretic Peptide 42 0-100 pg/mL Total Protein 6.5 6.0-8.3 g/dL Albumin 3.9 3.5-5.0 g/dL Procalcitonin < 0.05 L 0.05-0.5 ng/mL Influenza Type A Antigen Negative For Type A NEGATIVE Influenza Type B Antigen Negative For Type B NEGATIVE Whole Blood Glucose 98 70-110 MG/DL Urine Color YELLOW YELLOW Urine Appearance CLEAR CLEAR Urine pH 6.0 5.0-8.0 Urine Specific [place] 1.038 H 1.001-1.031 Urine Protein 20 H NEGATIVE mg/dL Urine Glucose (UA) NEGATIVE NEGATIVE mg/dL Urine Ketones 10 H NEGATIVE mg/dL Urine Occult Blood NEGATIVE NEGATIVE Urine Nitrate NEGATIVE NEGATIVE Urine Bilirubin NEGATIVE NEGATIVE mg/dL Urine Urobilinogen 0.2 0.2-1.0 mg/dL Urine Leukocyte Esterase NEGATIVE NEGATIVE [place]/uL Urine RBC 2-5 H 0-1 /HPF Urine WBC 2-5 H 0-1 /HPF Urine Squamous Epithelial Cells RARE 0-2 /HPF Urine Bacteria None None Seen /HPF Test 03/02/25 11:00 Range/Units Troponin I High Sensitivity 11 4-75 ng/L Lipase 32 16-77 U/L Current Medications Medications (Trade) Dose Ordered Sig/Valeria Route PRN Reason Start Time Stop Time Status Last Admin Dose Admin Acetaminophen (TYLenol 325MG TAB) 650 mg Q4H PRN PO MILD PAIN (1-3) 03/02/25 17:00 04/01/25 16:59 Acetaminophen (TYLenol 325MG TAB) 650 mg Q6H PRN PO MILD PAIN (1-3) 03/02/25 17:00 03/02/25 17:06 DC Acetaminophen (TYLenol 325MG TAB) 650 mg Q6H PRN PO TEMPERATURE GREATER THAN 101.5 03/02/25 17:00 04/01/25 16:59 Al Hydroxide/Mg Hydroxide (MAALox PLUS 30ML) 30 ml Q6H PRN PO INDIGESTION 03/02/25 17:00 04/01/25 16:59 Buspirone HCl (BUspar) 10 mg BID PRN PO ANXIETY 03/03/25 09:30 04/02/25 09:29 Dextrose (D50w) 50 ml AD PRN IV HYPOGLYCEMIA PROTOCOL 03/02/25 17:00 04/01/25 16:59 Diphenhydramine HCl (BENAdryl INJ) 25 mg Q6H PRN IV SEVERE ITCHING/RASH 03/02/25 17:00 04/01/25 16:59 Famotidine (Pepcid 20mg Vial) 20 mg BID PRN IV NAUSEA/VOMITING 03/02/25 17:00 03/02/25 17:06 DC Famotidine (Pepcid 20mg Vial) 20 mg DAILY IV 03/03/25 09:00 04/02/25 08:59 03/03/25 08:45 20 MG Glucagon (Glucagon 1mg Kit) 1 mg AD PRN IM HYPOGLYCEMIA PROTOCOL 03/02/25 17:00 04/01/25 16:59 Guaifenesin/ Dextromethorphan (RobiTUSSin DM 200/20MG 10ML) 10 ml Q4H PRN PO COUGH 03/02/25 17:00 04/01/25 16:59 Heparin Sodium (Porcine) (HEParin 5,000 UNIT VIAL) 5,000 unit BID SQ 03/02/25 21:00 04/01/25 20:59 03/03/25 08:58 5,000 UNIT Hydralazine HCl (APRESOLine 20MG INJ) 10 mg Q6H PRN IV For:SBP above 160;DBP above 90 03/02/25 17:00 04/01/25 16:59 Insulin Human Regular (humuLIN R 100 UNIT/ML 3ML) INSULIN SLIDING SCAL... ACHS SQ 03/02/25 21:00 04/01/25 20:59 Ketorolac Tromethamine (toRADol) 15 mg Q8H PRN IV MODERATE PAIN (4-6) 03/02/25 17:00 03/07/25 16:59 Lactulose (Constulose 20gm/ 30ml Udcup) 20 gm BID PRN PO CONSTIPATION 03/02/25 17:00 04/01/25 16:59 Latanoprost (Xalatan) 1 DROP HS OU 03/03/25 21:00 04/02/25 20:59 Magnesium Sulfate 50 ml @ 0 mls/hr PROTOCOL PRN IV other 03/02/25 17:00 04/01/25 16:59 Miscellaneous Medication (Trazodone HCl ) 300 mg HS PRN PO INSOMNIA/SLEEP 03/02/25 20:00 03/02/25 19:58 DC Morphine Sulfate (morPHINE 2MG SYG) 1 mg Q4H PRN IVP SEVERE PAIN (7-10) 03/02/25 17:00 03/09/25 16:59 Nitroglycerin (Nitrostat) 0.4 mg PROTOCOL PRN SL CHEST PAIN 03/02/25 17:00 04/01/25 16:59 Ondansetron HCl (zoFRAN 4MG INJ) 4 mg Q6H PRN IV NAUSEA/VOMITING 03/02/25 17:00 04/01/25 16:59 Potassium Chloride 100 ml @ 100 mls/hr AD PRN IV POTASSIUM PROTOCOL 03/02/25 17:00 04/01/25 16:59 Potassium Chloride (K-Dur 10meq Sr Tab) 10 meq AD PRN PO POTASSIUM PROTOCOL 03/03/25 09:30 04/01/25 16:59 Potassium Chloride (K-Dur/Klor-Con 20meq) 10 meq AD PRN PO POTASSIUM PROTOCOL 03/02/25 17:00 03/03/25 09:16 DC Potassium Chloride (KCl 10% Elixir 20meq/15ml) 10 meq AD PRN PO POTASSIUM PROTOCOL 03/02/25 17:00 04/01/25 16:59 Sertraline HCl (ZOloft 50 mg tab) 200 mg HS PO 03/03/25 21:00 04/02/25 20:59 Sodium Chloride 1,000 ml @ 100 mls/hr Q10H IV 03/02/25 17:00 04/01/25 16:59 03/02/25 17:57 100 MLS/HR Zolpidem Tartrate (AmbIEN) 5 mg HS PRN PO INSOMNIA 03/02/25 17:00 04/01/25 16:59 DIAGNOSTICS / RADIOLOGY: [ ] ASSESSMENT: [ Acute difficulty swollen POA Uncontrolled hypertension POA Acute dehydration POA Trace of Ascites per CT abdomen/pelvis POA Anasarca per CT abdomen/pelvis POA Enlarged prostate per CT abdomen/pelvis POA Anxiety POA Arthritis constipation POA GERD POA Hyperlipidemia POA ] PLAN: [Admit to: Medical-surgical Consults: GI, dietary consultation for weight loss Antibiotics: None Tests: EGD pending 03/03/2025 Normal saline at 100 mL/hour NEURO: Minimize central acting medications as possible. Fall Precautions. Well lighted room through the day and minimize interruptions through the night to prevent acute delirium. PULMONARY: Supplemental 02 as needed BiPAP as necessary, for respiratory distress Titrate Fio2 to keep Spo2 > or = 90% DuoNebs and CPT as needed IS hourly while awake for pulmonary hygiene Out of bed to chair as tolerated VAP Bundle Maintain aspiration precautions at all times CARDIOVASCULAR: Follow hemodynamics. Vital signs per facility protocol GI & NUTRITION: EGD pending 03/03/2025 CT abdomen/pelvis showed trace ascites POA is anasarca. Cachexia, enlarged prostate, distended urinary bladder Continue nutritional support Aspirations precautions Prokinetic agents and laxatives as needed KIDNEYS & ELECTROLYTES: Strict monitoring of intake and output Daily weights Avoid nephrotoxic agents Monitor electrolytes and replace as needed Goal urine output of 30mL/hr or 0.5mL/kg/hr Medications to be dosed according to renal function. Avoid contrast if possible ENDOCRINE: Maintain blood glucose between 100-180 at all times. Insulin sliding scale for blood glucose management Hypoglycemia and hyperglycemia protocol in place INFECTIOUS DISEASE: Trend temperature, WBC and procalcitonin level Follow cultures, deescalate antibiotics as soon as possible. Panculture if new onset fever HEMATOLOGY & COAGULATION: Monitor H&H. Keep Hgb > 7 Transfuse 1 unit of PRBC for Hgb < 7 Transfuse 1 pack of platelets of platelets < 20, 000 Watch for any signs and symptoms of bleeding SKIN: Pressure ulcer prevention per facility protocol Specialty mattress as needed Treatment plan discussed with patient and family at the bedside Medications to be reconciled once obtained by patient and/or family and available to be reconciled in computer p.r.n. 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 I reviewed the documentation, medical decision making, and treatment plan as noted by the mid-level provider above. I agree with the findings and plan of care. MARIELLA JOHNSON MD, KATARZYNA B TELEGRAPHIC INSTRUMENT SUPERVISOR March 03, 2025 11:23
--- NOTE | 2025-03-03 14:00 | NUR ---
Order received and spoke to nurse, patient is out of floor for EGD. PT team to follow.
[2025-03-03] MEDS ORDERED: proPOFol 10 MG/ML 20ML VIAL IV ONE (14:09)
[2025-03-03] MEDS ORDERED: ondanSETRON 4MG INJ ONE (14:20)
--- NOTE | 2025-03-03 15:32 | NUR ---
Nutritional Note: Pt reported a 70# wt loss since August. Last recorded wt here at hospital 77kg on 09/07/24. Recommend: -When medically feasible advance diet to general heart healthy Puree thin liquids. -Consider nutrition support if oral intake continues inadequate and prolonged. -Nephrovite MVI combination of B vitamins may be used to treat or prevent vitamin deficiency due to poor diet. -Magic Cup 4oz w/ PM tray: Provides 9gm pro/ 290kcal and 20 vitamins and minerals. [place] to serve with meals as a means of adding calories and protein for unintended weight loss. -ProStat BID (30 ml) JELLO Which - Electrolyte replacements per protocol -Monitor feeding tolerance, %, wt, and labs -Document PO intake and wt daily. -If PO intake continues <75% of meals taken consider appetite stimulant, if medically feasible. -If No BM >3days consider bowel stimulant. -Schedule outpatient RD f/u for long-term nutrition care. - Notify RD if additional nutrition concerns arise. SEE RD Nutritional Assessment for additional assessment information. Addendum: 03/03/25 at [address] Amended: Links added.
--- NOTE | 2025-03-03 16:00 | NUR ---
Pt returns from EGD orders received for bowel prep and colonoscopy for tomorrow. Consent is obtained and warehouse attendant is informed and orders is faxed to [phone]. PT is educated on the purpose for th\e bowel prep and that the colonoscopy will be scheduled for tomorrow at noon.
[2025-03-03] MEDS: PEG 3350/NA SULF,BICARB,CL/KCL 4000 ML SOLN PO ONE (16:26)
[2025-03-03] MEDS: LACTULOSE 20 GM/30 ML UDCUP PO ONE ×2 (16:26→17:34)
[2025-03-03] MEDS: SERTraline HCL 50 MG TABLET PO SCH (20:32)
[2025-03-03] MEDS: busPIRone HCL 5 MG TABLET PO PRN (20:33)
[2025-03-03] MEDS: BisaCODYL 10 MG SUPP.RECT RC ONE (20:33)
--- NOTE | 2025-03-03 20:35 | NUR ---
MEDS SHIFT ASSESSMENT DONE, PLEASE REFER TO CHART. DUE MEDS ADMINISTERED, TOLERATED WELL. ENCOURAGED TO CONTINUE GOLYTELY INTAKE AND INCREASE CLEAR LIQUIDS INTAKE. INSTRUCTED TO BE NPO AFTER 2AM. PT AND FAMILY VERBALIZES UNDERSTANDING.
[2025-03-03] MEDS: LATANOPROST 2.5 ML DROPS OU SCH (20:40)
--- NOTE | 2025-03-03 21:30 | NUR ---
ENEMA TAP WATER ENEMA GIVEN UNTIL PT UNABLE TO TOLERATE ANYMORE. OUTPUT VERY DIRTY AT THIS TIME. CLEAN AND KEPT DRY. PLACED DIAPER ON PT PT IS UNABLE TO CONTROL BOWELS ALREADY. ENCOURAGED GOLYTELY AND CLEAR LIQUIDS INTAKE.
[2025-03-04] VITALS (24 sets, daily range): BP systolic 90–156; BP diastolic 46–85; PULSE 50–108; RESP 14–20; TEMP 97.4–98.4; O2SAT 96–98
[2025-03-04 04:50] LABS: BASOPHILS # (AUTO) 0.01 K/uL (0.00-0.20); BASOPHILS % (AUTO) 0.1 % (0.0-5.0); HEMATOCRIT 37.4 % (42-54); IMMATURE GRANULOCYTE ABSOLUTE 0.03 K/uL (0-1); LYMPHOCYTES # (AUTO) 0.9 K/uL (1.0-4.8); LYMPHOCYTES % (AUTO) 11.1 % (21.0-51.0); MEAN CORPUSCULAR HEMOGLOBIN 31.2 pg (27.0-33.0); MEAN CORPUSCULAR HGB CONC 35.3 g/dL (32.0-36.0); MEAN CORPUSCULAR VOLUME 88.4 fL (79-99); MONOCYTES # (AUTO) 0.6 K/uL (0.1-1.0); MONOCYTES % (AUTO) 6.8 % (3.0-13.0); NEUTROPHILS # (AUTO) 6.6 K/uL (1.8-7.7); NEUTROPHILS % (AUTO) 81.6 % (40.0-77.0); PLATELET COUNT (AUTO) 144 K/uL (130-400); RED BLOOD CELL COUNT(AUTO) 4.23 MIL/uL (4.50-6.20); RED CELL DISTRIBUTION WIDTH 13.4 % (11.0-15.5); WHITE BLOOD COUNT (AUTO) 8.1 K/uL (4.8-10.8)
[2025-03-04 05:12] LABS: ALBUMIN 3.4 g/dL (3.5-5.0); BILIRUBIN,DIRECT 0.4 mg/dL (0.0-0.3); BILIRUBIN,TOTAL 1.1 mg/dL (0.2-1.0); CREATININE 0.8 mg/dL (0.5-1.3); POTASSIUM 4.8 mmol/L (3.5-5.1); THYROID STIMULATING HORMONE 1.8 uIU/mL (0.36-3.74); TOTAL PROTEIN, SERUM 5.9 g/dL (6.0-8.3)
--- NOTE | 2025-03-04 05:15 | NUR ---
ENEMA SECOND ENEMA DONE UNTIL OUTPUT IS CLEAR. PCP IN AND ASSISTED PT TO SHOWER. KEPT NPO FOR PROCEDURE. FOR MORE CARE.
[2025-03-04] MEDS: PANTOPrazole 40 MG TAB DR PO SCH (07:22)
[2025-03-04] MEDS ORDERED: PoTASSium chl 10% ELIXIR 20MEQ 20 MEQ/15 ML UDCUP PO PRN (12:00)
[2025-03-04] MEDS ORDERED: PoTASSium chloRIDE 10MEQ/100ML 100 ML IV PRN (12:00)
[2025-03-04] MEDS ORDERED: DEXTROSE 50%-WATER 50 ML DISP.SYRIN IV PRN (12:00)
[2025-03-04] MEDS ORDERED: PoTASSium chloRIDE 20MEQ ER 20 MEQ ERTAB PO PRN (12:00)
[2025-03-04] MEDS ORDERED: GLUCAGON 1MG KIT 1 MG ML IM PRN (12:00)
[2025-03-04] MEDS ORDERED: MAGNESIUM 2GM PREMIX 50ML 50 ML IV PRN (12:00)
--- NOTE | 2025-03-04 12:26 | PN ---
[facility] PROGRESS NOTE Date of Service: March 04, 2025 Time of Service: 12:[address] Johnson SUBJECTIVE: [ 03/02 Patient is 69 years old male with a past medical history of hypertension, anxiety, arthritis, constipation, GERD, hyperlipidemia, TURP, who came to emergency department from the [facility] with a complains of difficulty swallowing for the past two weeks in the lost of weight of about 70 lb since August 2024. Patient denies any shortness of breath, chest pain, nausea, fevers, vomiting or any other discomfort other than stated above. Patient was seen in our by speech therapy and as per their recommendation was no aspiration /no penetration. They recommended EGD by GI to be performed. Also CT abdomen/pelvis was performed and showed trace ascites. Anasarca, cachexia, enlarged prostate, distended urinary bladder. Most recent vital signs temperature 98.8 pulse 60 respiration 14 blood pressure 155/72. Patient is on room air satting 99%. WBC 4.6 hemoglobin 14.7 hematocrit 42.6 platelets 142. Sodium 145 potassium 3.8 CO2 32 BUN 26 creatinine 0.9 GFR 92 troponin negative x1 albumin 4.[address] abdomen/pelvis showed trace ascites. Anasarca. Cachexia, enlarged prostate, distended urinary bladder. Patient was also evaluated by the speech therapist and at this moment there is no aspiration seen and no penetration. They recommended EGD to be performed by GI. Patient will be admitted under hospitalist care for further evaluation/recommendations. Patient agrees with the further plan. 03/03 patient was seen by nurse practitioner and physician during rounding in room 316. Patient was evaluated by the GI and at this moment is waiting to undergo EGD. We will consult dietary consultation for loss in weight for about 70 lb since August 2024. Influenza a and influenza abuse negative. We will continue to monitor patient in the meantime. A.m. labs 03/04 patient was seen by nurse practitioner and physician during rounding. Patient is s/p EGD which showed acute gastritis, LA grade B reflux esophagitis. At this moment patient is pending colonoscopy today 03/04/2025. We also order HIDA scan with EF. As per case advocate recommendations when patient will be medically feasible advance diet to general healthy puree thin liquids. Consider nutritional support oral intake Nephro-Loki MVI combination of B vitamins to proven vitamin deficiency due to poor diet. Magic cup 4 oz with p.m. tray provides 9 g pros/290 calorie and 20 vitamins and minerals. ProStat BID (30 ml) JELLO. If PO intake continues <75% of meals taken consider appetite stimulant, if medically feasible. We will continue to monitor patient in the meantime. A.m. labs.] REVIEW OF SYSTEMS CONSTITUTIONAL: Denies fevers, chills, or night sweats. No unintentional weight loss reported. NEUROLOGICAL: Denies headache, amaurosis fugax, motor weakness, sensory defic it, vertigo/spinning sensation, gait abnormalities, or tremors. Patient complains of difficulty swallowing ENT: No hearing loss, otalgia, otorrhea, rhinitis, rhinorrhea, hoarseness, or sore throat. CARDIOVASCULAR: Denies any exertional angina, dyspnea on exertion, orthopnea, paroxysmal nocturnal dyspnea, palpitations, life-threatening arrhythmias, claudication. PULMONARY: Denies any shortness of breath, cough, phlegm/sputum, hemoptysis, pleuritic chest pain. SLEEP: Denies morning headaches, daytime somnolence or napping. Denies difficulty falling asleep, staying asleep, waking from sleep. Denies knowledge of snoring. GASTROINTESTINAL: Denies any type of dysphagia to either liquids or solids. Denies nausea, vomiting, pyrosis, early satiety, abdominal pain, diarrhea, constipation, or changes in stool consistency or caliber. Denies coffee-ground emesis, hematemesis, hematochezia, or melanotic stools. GENITOURINARY: Denies frequency, urgency, nocturia, hematuria or incontinence (Storage/Irritative symptoms.) Low urinary stream, straining to void, urinary intermittency or hesitancy, splitting of the voiding stream, terminal dribbling. ENDOCRINOLOGIC: Denies polyuria, polydipsia, polyphagia or heat/cold intolerances. HEMATOLOGIC: Denies thrombophilia/previous clots, or coagulopathy/bleeding disorders. ONCOLOGIC: Denies personal history of malignancy. DERMATOLOGIC: Denies rashes or pruritus. PSYCHIATRIC: Denies any suicidal or homicidal ideation. Denies hallucinations. PHYSICAL EXAM GENERAL APPEARANCE: The patient is awake, alert, and oriented, in no acute cardiopulmonary distress. NEUROLOGICAL: Cranial nerves II-XII grossly intact. Motor is 5/5 in bilateral upper and lower extremities proximal to distal. No sensory deficits. HEENT: Face is symmetric. Pupils are equal and reactive. Extraocular movements are intact. NECK: Supple. No JVD. No thyromegaly. No submental, submandibular, pre- /postauricular, occipital or supraclavicular lymphadenopathy. CHEST: Normal chest expansion. No Telemetry. LUNGS: Absence of any rales, rhonchi or any wheezing. CARDIOVASCULAR: Regular. S1 and S2 normal. No appreciable rubs, murmurs or gallops. ABDOMEN: Soft, nontender, and nondistended. There is no rebound, voluntary guarding, or rigidity. : Deferred. No Huffman. EXTREMITIES: Non-edematous and not cyanotic. No clubbing. Good capillary refill. SKIN: No skin breakdown. Vital Signs (last 8hr) Date Time Temp Pulse Resp B/P (MAP) Pulse Ox O2 Delivery O2 Flow Rate FiO2 03/04/25 11:44 98.4 90 20 138/85 100 Room Air 21 03/04/25 08:00 96 Room Air* 0 21 03/04/25 07:00 98.1 75 20 118/76 96 Room Air 21 LABS: Laboratory: Test 03/04/25 11:07 03/04/25 04:26 03/03/25 06:27 03/02/25 22:40 Range/Units Whole Blood Glucose 75 70-110 MG/DL White Blood Count 8.1 # 4.8-10.8 K/uL Red Blood Count 4.23 L 4.50-6.20 MIL/uL Hemoglobin 13.2 L 14.0-18.0 g/dL Hematocrit 37.4 L 42-54 % Mean Corpuscular Volume 88.4 79-99 fL Mean Corpuscular Hemoglobin 31.2 27.0-33.0 pg Mean Corpuscular Hemoglobin Concent 35.3 32.0-36.0 g/dL Red Cell Distribution Width 13.4 11.0-15.5 % Platelet Count 144 130-400 K/uL Mean Platelet Volume 13.1 H 7.5-10.5 fL Immature Granulocyte % (Auto) 0.4 0-1 % Neutrophils (%) (Auto) 81.6 H 40.0-77.0 % Lymphocytes (%) (Auto) 11.1 L 21.0-51.0 % Monocytes (%) (Auto) 6.8 3.0-13.0 % Eosinophils (%) (Auto) 0.0 0.0-8.0 % Basophils (%) (Auto) 0.1 0.0-5.0 % Neutrophils # (Auto) 6.6 1.8-7.7 K/uL Lymphocytes # (Auto) 0.9 L 1.0-4.8 K/uL Monocytes # (Auto) 0.6 0.1-1.0 K/uL Eosinophils # (Auto) 0.00 0.00-0.70 K/uL Basophils # (Auto) 0.01 0.00-0.20 K/uL Absolute Immature Granulocyte (auto 0.03 0-1 K/uL Nucleated Red Blood Cells 0.0 0.0-0.19 % Sodium Level 144 136-145 mmol/L Potassium Level 4.8 3.5-5.1 mmol/L Chloride Level 106 101-111 mmol/L Carbon Dioxide Level 32 21-32 mmol/L Blood Urea Nitrogen 18 7-18 mg/dL Creatinine 0.8 0.5-1.3 mg/dL Glomerular Filtration Rate Calc 96 >90 mL/min Random Glucose 84 70-105 mg/dL Total Calcium 8.4 L 8.5-10.1 mg/dL Magnesium Level 2.00 1.80-2.40 mg/dL Total Bilirubin 1.1 H 0.2-1.0 mg/dL Direct Bilirubin 0.4 H 0.0-0.3 mg/dL Aspartate Amino Transf (AST/SGOT) 22 10-37 U/L Alanine Aminotransferase (ALT/SGPT) 49 12-78 U/L Alkaline Phosphatase 48 L 50-136 U/L Total Protein 5.9 L 6.0-8.3 g/dL Albumin 3.4 L 3.5-5.0 g/dL Thyroid Stimulating Hormone (TSH) 1.80 0.36-3.74 uIU/mL Hemoglobin A1c 6.0 4.0-6.0 % Estimated Average Glucose (eAG) 126 70-126 mg/dL Lactic Acid Level 1.2 0.8-2.5 mmol/L Total Creatine Kinase 76 # 21-232 U/L B-Type Natriuretic Peptide 42 0-100 pg/mL Procalcitonin < 0.05 L 0.05-0.5 ng/mL Influenza Type A Antigen Negative For Type A NEGATIVE Influenza Type B Antigen Negative For Type B NEGATIVE Test 03/02/25 19:00 Range/Units Urine Color YELLOW YELLOW Urine Appearance CLEAR CLEAR Urine pH 6.0 5.0-8.0 Urine Specific Burgess 1.038 H 1.001-1.031 Urine Protein 20 H NEGATIVE mg/dL Urine Glucose (UA) NEGATIVE NEGATIVE mg/dL Urine Ketones 10 H NEGATIVE mg/dL Urine Occult Blood NEGATIVE NEGATIVE Urine Nitrate NEGATIVE NEGATIVE Urine Bilirubin NEGATIVE NEGATIVE mg/dL Urine Urobilinogen 0.2 0.2-1.0 mg/dL Urine Leukocyte Esterase NEGATIVE NEGATIVE Franklin/uL Urine RBC 2-5 H 0-1 /HPF Urine WBC 2-5 H 0-1 /HPF Urine Squamous Epithelial Cells RARE 0-2 /HPF Urine Bacteria None None Seen /HPF Current Medications Medications (Trade) Dose Ordered Sig/Valeria Route PRN Reason Start Time Stop Time Status Last Admin Dose Admin Acetaminophen (TYLenol 325MG TAB) 650 mg Q4H PRN PO MILD PAIN (1-3) 03/02/25 17:00 04/01/25 16:59 Acetaminophen (TYLenol 325MG TAB) 650 mg Q6H PRN PO MILD PAIN (1-3) 03/02/25 17:00 03/02/25 17:06 DC Acetaminophen (TYLenol 325MG TAB) 650 mg Q6H PRN PO TEMPERATURE GREATER THAN 101.5 03/02/25 17:00 04/01/25 16:59 Al Hydroxide/Mg Hydroxide (MAALox PLUS 30ML) 30 ml Q6H PRN PO INDIGESTION 03/02/25 17:00 04/01/25 16:59 Buspirone HCl (BUspar) 10 mg BID PRN PO ANXIETY 03/03/25 09:30 04/02/25 09:29 03/03/25 20:33 10 MG Dextrose (D50w) 50 ml AD PRN IV HYPOGLYCEMIA PROTOCOL 03/02/25 17:00 03/03/25 11:20 DC Diphenhydramine HCl (BENAdryl INJ) 25 mg Q6H PRN IV SEVERE ITCHING/RASH 03/02/25 17:00 04/01/25 16:59 Famotidine (Pepcid 20mg Vial) 20 mg BID PRN IV NAUSEA/VOMITING 03/02/25 17:00 03/02/25 17:06 DC Famotidine (Pepcid 20mg Vial) 20 mg DAILY IV 03/03/25 09:00 04/02/25 08:59 03/04/25 07:29 20 MG Glucagon (Glucagon 1mg Kit) 1 mg AD PRN IM HYPOGLYCEMIA PROTOCOL 03/02/25 17:00 03/03/25 11:20 DC Guaifenesin/ Dextromethorphan (RobiTUSSin DM 200/20MG 10ML) 10 ml Q4H PRN PO COUGH 03/02/25 17:00 04/01/25 16:59 Heparin Sodium (Porcine) (HEParin 5,000 UNIT VIAL) 5,000 unit BID SQ 03/02/25 21:00 04/01/25 20:59 03/04/25 07:29 5,000 UNIT Hydralazine HCl (APRESOLine 20MG INJ) 10 mg Q6H PRN IV For:SBP above 160;DBP above 90 03/02/25 17:00 04/01/25 16:59 Insulin Human Regular (humuLIN R 100 UNIT/ML 3ML) INSULIN SLIDING SCAL... ACHS SQ 03/02/25 21:00 03/03/25 11:20 DC Ketorolac Tromethamine (toRADol) 15 mg Q8H PRN IV MODERATE PAIN (4-6) 03/02/25 17:00 03/07/25 16:59 Lactulose (Constulose 20gm/ 30ml Udcup) 20 gm BID PRN PO CONSTIPATION 03/02/25 17:00 04/01/25 16:59 Latanoprost (Xalatan) 1 DROP HS OU 03/03/25 21:00 04/02/25 20:59 Magnesium Sulfate 50 ml @ 0 mls/hr PROTOCOL PRN IV other 03/02/25 17:00 04/01/25 16:59 Miscellaneous Medication (Trazodone HCl ) 300 mg HS PRN PO INSOMNIA/SLEEP 03/02/25 20:00 03/02/25 19:58 DC Morphine Sulfate (morPHINE 2MG SYG) 1 mg Q4H PRN IVP SEVERE PAIN (7-10) 03/02/25 17:00 03/09/25 16:59 Nitroglycerin (Nitrostat) 0.4 mg PROTOCOL PRN SL CHEST PAIN 03/02/25 17:00 04/01/25 16:59 Ondansetron HCl (zoFRAN 4MG INJ) 4 mg Q6H PRN IV NAUSEA/VOMITING 03/02/25 17:00 04/01/25 16:59 Pantoprazole Sodium (PROTonix 40MG TAB) 40 mg DAILY PO 03/04/25 09:00 04/03/25 08:59 Potassium Chloride 100 ml @ 100 mls/hr AD PRN IV POTASSIUM PROTOCOL 03/02/25 17:00 03/03/25 11:20 DC Potassium Chloride (K-Dur 10meq Sr Tab) 10 meq AD PRN PO POTASSIUM PROTOCOL 03/03/25 09:30 04/01/25 16:59 Potassium Chloride (K-Dur/Klor-Con 20meq) 10 meq AD PRN PO POTASSIUM PROTOCOL 03/02/25 17:00 03/03/25 09:16 DC Potassium Chloride (KCl 10% Elixir 20meq/15ml) 10 meq AD PRN PO POTASSIUM PROTOCOL 03/02/25 17:00 03/03/25 11:20 DC Sertraline HCl (ZOloft 50 mg tab) 200 mg HS PO 03/03/25 21:00 04/02/25 20:59 03/03/25 20:32 200 MG Sodium Chloride 1,000 ml @ 100 mls/hr Q10H IV 03/02/25 17:00 04/01/25 16:59 03/04/25 03:13 100 MLS/HR Zolpidem Tartrate (AmbIEN) 5 mg HS PRN PO INSOMNIA 03/02/25 17:00 04/01/25 16:59 DIAGNOSTICS / RADIOLOGY: [ ] ASSESSMENT: [ Acute difficulty swollen POA s/p EGD 03/03/2025 showed acute gastritis, LA grade B reflux esophagitis Uncontrolled hypertension POA Severe protein malnutrition POA Acute dehydration POA Trace of Ascites per CT abdomen/pelvis POA Anasarca per CT abdomen/pelvis POA Enlarged prostate per CT abdomen/pelvis POA severe Anxiety POA Arthritis constipation POA GERD POA Hyperlipidemia POA ] PLAN: [Admit to: Medical-surgical Consults: GI, dietary consultation for weight loss Antibiotics: None Tests: Colonoscopy pending 03/04/2025, HIDA scan Normal saline at 100 mL/hour NEURO: Minimize central acting medications as possible. Fall Precautions. Well lighted room through the day and minimize interruptions through the night to prevent acute delirium. PULMONARY: Supplemental 02 as needed BiPAP as necessary, for respiratory distress Titrate Fio2 to keep Spo2 > or = 90% DuoNebs and CPT as needed IS hourly while awake for pulmonary hygiene Out of bed to chair as tolerated VAP Bundle Maintain aspiration precautions at all times CARDIOVASCULAR: Follow hemodynamics. Vital signs per facility protocol GI & NUTRITION: EGD 03/03/2025 acute gastritis, LA grade B reflux esophagitis Colonoscopy pending 03/04/[address] abdomen/pelvis showed trace ascites POA is anasarca. Cachexia, enlarged prostate, distended urinary bladder Continue nutritional support Aspirations precautions Prokinetic agents and laxatives as needed KIDNEYS & ELECTROLYTES: Strict monitoring of intake and output Daily weights Avoid nephrotoxic agents Monitor electrolytes and replace as needed Goal urine output of 30mL/hr or 0.5mL/kg/hr Medications to be dosed according to renal function. Avoid contrast if possible ENDOCRINE: Maintain blood glucose between 100-180 at all times. Insulin sliding scale for blood glucose management Hypoglycemia and hyperglycemia protocol in place INFECTIOUS DISEASE: Trend temperature, WBC and procalcitonin level Follow cultures, deescalate antibiotics as soon as possible. Panculture if new onset fever HEMATOLOGY & COAGULATION: Monitor H&H. Keep Hgb > 7 Transfuse 1 unit of PRBC for Hgb < 7 Transfuse 1 pack of platelets of platelets < 20, 000 Watch for any signs and symptoms of bleeding SKIN: Pressure ulcer prevention per facility protocol Specialty mattress as needed Treatment plan discussed with patient and family at the bedside Medications to be reconciled once obtained by patient and/or family and avail able to be reconciled in computer p.r.n. medication for pain nausea and vomiting Questions were answered We will continue to monitor the patient closely Behavioral Sciences Department Chair for disposition Rehab: PT/OT GI: PPI DVT: SCD's Code Status: Full Resuscitation Disposition: Home Prognosis: Guarded ] ATTESTATION BY PHYSICIAN I have seen and examined the patient. I reviewed the documentation, medical decision making, and treatment plan as noted by the mid-level provider above. I agree with the findings and plan of care. MARIELLA JOHNSON MD, [facility] [employer] March 04, 2025 12:26
[2025-03-04] MEDS ORDERED: proPOFol 10 MG/ML 20ML VIAL IV ONE (14:12)
[2025-03-04] MEDS ORDERED: LIDOCAINE PF 100MG/5ML (2%) SYRINGE 5ML ONE (14:12)
[2025-03-04] MEDS: INSULIN humuLIN R 100 UNIT/ML 3ML SQ SCH (16:30)
--- NOTE | 2025-03-04 19:00 | NUR ---
[facility] IS OUT OF THE FLOOR IN NUCLEAR MED FOR HIDA SCAN.
--- NOTE | 2025-03-04 20:45 | NUR ---
MEDS SHIFT ASSESSMENT DONE, PLEASE REFER TO CHART. DUE MEDS ADMINISTERED, TOLERATED WELL. PT TAKEN DOWN TO RADIOLOGY FOR SECOND PHASE OF HIDA SCAN.
--- NOTE | 2025-03-04 21:50 | NUR ---
BACK PT BACK IN ROOM FROM HIDA SCAN. STARTED PT ON CLEAR LIQUIDS FOR NOW. DUE MED MEDS ADMINISTERED, TOLERATED WELL. KEPT RESTED AND COMFORTABLE IN BED. CALL LIGHT WITHIN REACH. PT'S SPOUSE AT BEDSIDE IN ATTENDANCE TO NEEDS AT THIS TIME.
[2025-03-05 03:21] VITALS: BP 116/57; PULSE 60; RESP 16; TEMP 97.9
[2025-03-05 06:15] LABS: BASOPHILS # (AUTO) 0.01 K/uL (0.00-0.20); BASOPHILS % (AUTO) 0.2 % (0.0-5.0); EOSINOPHILS # (AUTO) 0.01 K/uL (0.00-0.70); EOSINOPHILS % (AUTO) 0.2 % (0.0-8.0); HEMATOCRIT 39.1 % (42-54); IMMATURE GRANULOCYTE ABSOLUTE 0.02 K/uL (0-1); LYMPHOCYTES # (AUTO) 1.6 K/uL (1.0-4.8); LYMPHOCYTES % (AUTO) 32.5 % (21.0-51.0); MEAN CORPUSCULAR HEMOGLOBIN 30.4 pg (27.0-33.0); MEAN CORPUSCULAR HGB CONC 34.8 g/dL (32.0-36.0); MEAN CORPUSCULAR VOLUME 87.3 fL (79-99); MONOCYTES # (AUTO) 0.5 K/uL (0.1-1.0); MONOCYTES % (AUTO) 10.4 % (3.0-13.0); NEUTROPHILS # (AUTO) 2.8 K/uL (1.8-7.7); NEUTROPHILS % (AUTO) 56.3 % (40.0-77.0); PLATELET COUNT (AUTO) 131 K/uL (130-400); RED BLOOD CELL COUNT(AUTO) 4.48 MIL/uL (4.50-6.20); RED CELL DISTRIBUTION WIDTH 13.2 % (11.0-15.5); WHITE BLOOD COUNT (AUTO) 4.9 K/uL (4.8-10.8)
[2025-03-05 06:29] LABS: ALBUMIN 3.3 g/dL (3.5-5.0); BILIRUBIN,TOTAL 1.3 mg/dL (0.2-1.0); CREATININE 0.8 mg/dL (0.5-1.3); POTASSIUM 4.7 mmol/L (3.5-5.1); TOTAL PROTEIN, SERUM 5.8 g/dL (6.0-8.3)
[2025-03-05 08:07] VITALS: BP 157/83; PULSE 54; RESP 20; TEMP 97
[2025-03-05 08:44] VITALS: O2SAT 100
[2025-03-05] MEDS: LACTULOSE 20 GM/30 ML UDCUP PO SCH (08:44)
[2025-03-05] MEDS ORDERED: LACTULOSE 20 GM/30 ML UDCUP PO SCH (09:00)
--- NOTE | 2025-03-05 10:17 | HMCIMG ---
HIDA scan INDICATION: abn labs. TECHNIQUE: Patient was administered 7 mCi of technetium 99m Choletec IV and dynamic images of the abdomen were obtained over 2 hours. Patient was then given 1. mcg of CCK IV for gallbladder ejection fraction calculation. FINDINGS: There is rapid and homogeneous uptake of radiopharmaceutical by the liver, which shows normal size and shape. Activity in the gallbladder is delayed , noted 60 minutes after injection of tracer. Normal hepatic clearance with activity in the small bowel. Gallbladder ejection fraction calculated at 14% (normal is > 35%). IMPRESSION: Low ejection fraction consistent with gallbladder dyskinesia. No evidence of acute or chronic cholecystitis..
[2025-03-05 12:00] VITALS: BP 107/73; PULSE 92; RESP 20; TEMP 97.3
[2025-03-05] MEDS ORDERED: PANT40TA55 PO (12:01)
--- NOTE | 2025-03-05 12:07 | DS ---
Discharge Summary Hospital Course Summary: [ 03/02 Patient is 69 years old male with a past medical history of hypertension, anxiety, arthritis, constipation, GERD, hyperlipidemia, TURP, who came to emergency department from the [facility] with a complains of difficulty swallowing for the past two weeks in the lost of weight of about 70 lb since August 2024. Patient denies any shortness of breath, chest pain, nausea, fevers, vomiting or any other discomfort other than stated above. Patient was seen in our by speech therapy and as per their recommendation was no aspiration/no penetration. They recommended EGD by GI to be performed. Also CT abdomen/pelvis was performed and showed trace ascites. Anasarca, cachexia, enlarged prostate, distended urinary bladder. Most recent vital signs temperature 98.8 pulse 60 respiration 14 blood pressure 155/72. Patient is on room air satting 99%. WBC 4.6 hemoglobin 14.7 hematocrit 42.6 platelets 142. Sodium 145 potassium 3.8 CO2 32 BUN 26 creatinine 0.9 GFR 92 troponin negative x1 albumin 4.[address] abdomen/pelvis showed trace ascites. Anasarca. Cachexia, enlarged prostate, distended urinary bladder. Patient was also evaluated by the speech therapist and at this moment there is no aspiration seen and no penetration. They recommended EGD to be performed by GI. Patient will be admitted under hospitalist care for further evaluation/recommendations. Patient agrees with the further plan. 03/03 patient was seen by nurse practitioner and physician during rounding in room 316. Patient was evaluated by the GI and at this moment is waiting to undergo EGD. We will consult dietary consultation for loss in weight for about 70 lb since August 2024. Influenza a and influenza abuse negative. We will continue to monitor patient in the meantime. A.m. labs 03/04 patient was seen by nurse practitioner and physician during rounding. Patient is s/p EGD which showed acute gastritis, LA grade B reflux esophagitis. At this moment patient is pending colonoscopy today 03/04/2025. We also order HIDA scan with EF. As per demo specialist recommendations when patient will be medically feasible advance diet to general healthy puree thin liquids. Consider nutritional support oral intake Nephro-Loki MVI combination of B vitamins to proven vitamin deficiency due to poor diet. Magic cup 4 oz with p.m. tray provides 9 g pros/290 calorie and 20 vitamins and minerals. ProStat BID (30 ml) JELLO. If PO intake continues <75% of meals taken consider appetite stimulant, if medically feasible. We will continue to monitor patient in the meantime. A.m. labs.] 03/05/25 patient is clinically stable for discharge patient will have his repeat colonoscopy outpatient setting we will follow-up with Dr. Hered[facility] 2-3 days. Patient we will continue with Protonix as recommended per Dr. Heredia for eight weeks. Patient is tolerating diet no nausea no vomiting. All questions addressed. Neurology Physician(s): REASON: abn labs ORDERING PHYSICIAN: HERB GUARDADO APRN PROCEDURE: HIDA EF - NM HIDA WITH EF/CCK HIDA scan INDICATION: abn labs. TECHNIQUE: Patient was administered 7 mCi of technetium 99m Choletec IV and dynamic images of the abdomen were obtained over 2 hours. Patient was then given 1. mcg of CCK IV for gallbladder ejection fraction calculation. FINDINGS: There is rapid and homogeneous uptake of radiopharmaceutical by the liver, which shows normal size and shape. Activity in the gallbladder is delayed , noted 60 minutes after injection of tracer. Normal hepatic clearance with activity in the small bowel. Gallbladder ejection fraction calculated at 14% (normal is > 35%). IMPRESSION: Low ejection fraction consistent with gallbladder dyskinesia. No evidence of acute or chronic cholecystitis.. Procedure(s): REASON: difficulty swallowing ORDERING PHYSICIAN: TRAE JONAS NP PROCEDURE: MBSS - MODIFIED BARIUM SWALLOW W CINE MODIFIED BARIUM SWALLOW W CINE INDICATION: difficulty swallowing FINDINGS: Fluoroscopic assistance was provided to the speech pathologist while performing examination. For findings and dietary recommendations, refer to speech pathologist's report. IMPRESSION: Modified barium swallow as described. REASON: abn labs ORDERING PHYSICIAN: HERB GUARDADO APRN PROCEDURE: HIDA EF - NM HIDA WITH EF/CCK HIDA scan INDICATION: abn labs. TECHNIQUE: Patient was administered 7 mCi of technetium 99m Choletec IV and dynamic images of the abdomen were obtained over 2 hours. Patient was then given 1. mcg of CCK IV for gallbladder ejection fraction calculation. FINDINGS: There is rapid and homogeneous uptake of radiopharmaceutical by the liver, which shows normal size and shape. Activity in the gallbladder is delayed , noted 60 minutes after injection of tracer. Normal hepatic clearance with activity in the small bowel. Gallbladder ejection fraction calculated at 14% (normal is > 35%). IMPRESSION: Low ejection fraction consistent with gallbladder dyskinesia. No evidence of acute or chronic cholecystitis.. REASON: n/v, constipation ORDERING PHYSICIAN: TRAE JONAS NP PROCEDURE: ABD PEL W - CT ABDOMEN/PELVIS W/CONTRAST Exam Type: CT ABDOMEN/PELVIS W/CONTRAST Clinical Information: n/v, constipation Comparison: None Contrast: 100 cc's Isovue 370 IV, no complications or adverse reactions CT Dose Index (CTDI): 31.60 mGy Dose Length Product (DLP): 1740.80 total mGy-cm Findings: Trace ascites. Anasarca. Cachexia. No evidence of nephro or ureterolithiasis is found. No hydronephrosis or ureteral dilatation is seen. The lung bases are clear. The stomach is unremarkable. It shows no wall thickening. No gross ulceration is seen. It is not overly distended. There are no surrounding inflammatory changes. No wall lesions are identified to suggest cancer. The spleen is unremarkable. It is not enlarged. The pancreas shows normal anatomy. It is not fatty replaced. It shows no lesions. The pancreatic duct is not dilated. The gallbladder is unremarkable. It shows no cholelithiasis. The gallbladder wall is normal in thickness. There is no pericholecystic fluid. The is no acute or chronic inflammation noted. The adrenal glands are unremarkable. There is no enlargement. No lesions are noted. The liver is unremarkable. It shows no focal masses. The appendix is unremarkable. It shows no evidence of inflammation. No appendicolith is seen. The small bowel is unremarkable. There is no evidence of dilatation to suggest obstruction. No evidence of adynamic ileus is seen. There is no small bowel wall thickening to suggest enteritis. The colon is unremarkable. Distended urinary bladder is seen. Enlarged prostate. The other pelvic structures are unremarkable. The bony and vascular structures are unremarkable for the patient's age. IMPRESSION: Trace ascites. Anasarca. Cachexia. Distended urinary bladder. Enlarged prostate. This study was performed using dose reduction techniques to include automated exposure control and/or adjustment of the mA and/or kV according to patient size. 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 Heredia two days PCP: DR Juan Velasquez MD 2-3 days PROCEDURES: Colonoscopy we will be repeated Dr. Heredia office IMAGING (S) report attached to summary : MICROBIOLOGY: report attached to summary; ACTIVITY: ab mian HOME MEDICATIONS; remain the same CHANGES ON HOME MEDICATIONS; none NEW MEDICATIONS Protonix 40 mg po daily for 8 wks TEACHING: avoid high food diet, and greasy food Emergency instructions: The patient was instructed to present to the nearest Emergency Department or call 911 should their symptoms return or worsen. Home Medications: Reported Medications Latanoprost (Latanoprost) 0.005 % Drops, 1 DROP OU HS 03/03/25 Buspirone HCl (Buspirone HCl) 10 Mg Tablet, 10 MG PO BID PRN for ANXIETY, TAB 03/02/25 Sertraline HCl (Sertraline HCl) 100 Mg Tablet, 200 MG PO HS, TAB 03/02/25 Trazodone HCl (Trazodone HCl) 150 Mg Tablet, 150 MG PO HS PRN for INSOMNIA/SLEEP, TAB 03/02/25 Discontinued Reported Medications Finasteride (Finasteride) 5 Mg Tablet, 5 MG PO BID, TAB 09/08/24 Tamsulosin HCl (Flomax) 0.4 Mg Cap.er.24h, 1 CAP PO DAILY for 30 Days, #30 CAP 0 Refills 09/08/24 Pantoprazole Sodium (Pantoprazole Sodium) 40 Mg Tablet.dr, 1 TAB PO DAILY for 30 Days, #30 TAB 0 Refills 09/08/24 Discontinued Scripts Levofloxacin (Levofloxacin) 500 Mg Tablet, 1 TAB PO DAILY for 7 Days, #7 TAB 0 Refills Prov:BRENDA ARAUJO NP 09/09/24 New Medications: Pantoprazole Sodium (Protonix) 40 Mg Ectab 1 TAB PO DAILY for 30 Days, #30 TAB 0 Refills Continued Medications: Buspirone HCl (Buspirone HCl) 10 Mg Tablet 10 MG PO BID PRN for ANXIETY, TAB Latanoprost (Latanoprost) 0.005 % Drops 1 DROP OU HS Sertraline HCl (Sertraline HCl) 100 Mg Tablet 200 MG PO HS, TAB Trazodone HCl (Trazodone HCl) 150 Mg Tablet 150 MG PO HS PRN for INSOMNIA/SLEEP, TAB Time spent arranging discharge: 31-60 minutes ATTESTATION BY PHYSICIAN I have seen and examined the patient. I reviewed the documentation, medical decision making, and treatment plan as noted by the mid-level provider above. I agree with the findings and plan of care. MARIELLA JOHNSON MD, ELIZABETH NP March 05, 2025 12:07
--- NOTE | 2025-03-05 15:30 | NUR ---
DR. RICHTER DISCHARGE [place] CHARGE NURSE S/W DR. RICHTER PER OKAY TO DISCHARGE. PATIENT HAS COLONOSCOPY SCHEDULED FOR SUNDAY 03/11.
--- NOTE | 2025-03-05 15:49 | NUR ---
PATIENT DISCHARGED PERIPHERAL IV LINE DISCONTINUED. PRESCRIPTIONS GIVEN. PATIENT AWARE TO FOLLOW UP WITH PCP. F/U WITH DR. RICHTER IN ONE WEEK. ALL QUESTIONS ANSWERED.
--- NOTE | 2025-03-08 11:29 | NUR ---
Transitional Phone Call Spoke to Vonda Palencia, Spouse [phone], states patient is "doing fine for what he went into the hospital for." States patient is currently at a Neurology appointment in [place] and states he has been diagnosed with Progressive Dementia. [facility] patient went to the follow up appointment with GI - Dr. Heredia on Friday03/07/2025 to prep for colonoscopy scheduled on 03/11/2025. States no questions or concerns at this time.
== END 2025-03-05 15:54 | disposition home or self-care (01) | DRG 391 ==
LOC: EDH 10:22 → EDHIP 16:16 → 3CH 03-03 01:08
PROVIDERS: ADMIT Internal Medicine; ATTEND Internal Medicine
PROC: 0DJ08ZZ Inspection of Upper Intestinal Tract, Via Natural or Artificial Opening Endoscopic (ICD-10-PCS; principal; 2025-03-03)
PROC: 0DJD8ZZ Inspection of Lower Intestinal Tract, Via Natural or Artificial Opening Endoscopic (ICD-10-PCS; 2025-03-04)
DX: K21.00 Gastro-esophageal reflux disease with esophagitis, without bleeding (principal); E43 Unspecified severe protein-calorie malnutrition; R64 Cachexia; Z68.1 Body mass index [BMI] 19.9 or less, adult; K29.00 Acute gastritis without bleeding; E86.0 Dehydration; K64.8 Other hemorrhoids; F41.9 Anxiety disorder, unspecified; I10 Essential (primary) hypertension; K59.00 Constipation, unspecified; N40.0 Benign prostatic hyperplasia without lower urinary tract symptoms; G47.33 Obstructive sleep apnea (adult) (pediatric); E78.00 Pure hypercholesterolemia, unspecified; F43.10 Post-traumatic stress disorder, unspecified; K76.0 Fatty (change of) liver, not elsewhere classified; Z80.0 Family history of malignant neoplasm of digestive organs; Z80.42 Family history of malignant neoplasm of prostate; Z86.0100 Personal history of colon polyps, unspecified; Z87.11 Personal history of peptic ulcer disease; Z79.899 Other long term (current) drug therapy
CPT/HCPCS: 36415; 43249; 45378; 74177; 74230; 78227; 80048; 80053; 80076; 81001; 82550; 82948; 83036; 83605; 83690; 83735; 83880; 84145; 84443; 84484; 85025; 87804; 92611; 93005; 99285; A4606; A9537; G0378; J1644; J2003; J2405; J2704; J3490; Q9967; A4215; A4222; A4223; A4620; C1726